=== PATIENT | female | born 1950 | race Caucasian/White ===

== ENCOUNTER 2020-07-28 08:49 | Outpatient (REF) | payer MEDICARE, MEDICAID, SELFPAY ==
[2020-07-28 10:09] LABS: MANUAL DIFF FLAG NO
[2020-07-28 10:22] LABS: Basophils Absolute Auto 0.1 X10*3/uL (0.0-0.2); Basophils Percent Auto 1.2 % (0-2); Eosinophils Absolute Auto 0.2 X10*3/uL (0.0-0.4); Eosinophils Percent Auto 1.8 % (0-4); Hematocrit 46.1 % (37-47); Hemoglobin 14.8 g/dl (12.0-16.0); Imm Gran Abs Auto 0.07 X10*3/uL (0.00-0.03); Imm Gran Pct Auto 0.7 % (0.0-0.4); Lymphocytes Absolute Auto 2.5 X10*3/uL (1.2-4.9); Lymphocytes Percent Auto 25.2 % (20-40); Mean Corpuscular HGB Conc 32.1 g/dl (31.0-35.0); Mean Corpuscular Hemoglobin 28.9 pg (27.0-33.0); Mean Platelet Volume 11.4 fL (9.4-12.3); Monocytes Absolute Auto 0.6 X10*3/uL (0.1-1.2); Monocytes Percent Auto 6.3 % (2-11); Neutrophils Absolute Auto 6.4 X10*3/uL (2.0-8.3); Neutrophils Percent Auto 64.8 % (45-73); Platelet Count 284 X10*3/uL (160-400); Red Blood Count 5.12 X10*6/uL (4.20-5.50); Red Cell Distribution Width 12.6 % (11.0-16.0); White Blood Count 9.9 X10*3/uL (4.8-10.8)
[2020-07-28 10:44] LABS: Alanine Aminotransferase 11 U/L (0-31); Albumin Level 4.1 g/dL (3.5-5.0); Alkaline Phosphatase 107 U/L (39-117); Anion Gap 14 (12-20); Aspartate Amino Transferase 13 U/L (5-31); Bilirubin Total 0.2 mg/dL (0.0-1.0); Blood Urea Nitrogen 18 mg/dL (9-16); Calcium 8.3 mg/dL (8.4-10.2); Carbon Dioxide 27 mmol/L (22-29); Chloride 103 mmol/L (96-108); Cholesterol 159 mg/dL; Estimated Glomerular Filt Rate 51; Glucose Fasting 207 mg/dL (60-99); HDL Cholesterol 38 mg/dL; LDL Cholesterol Calculated 96 mg/dl; Potassium 4.7 mmol/l (3.3-5.1); Sodium 139 mmol/L (135-145); Total Protein 6.7 g/dL (6.5-8.0); Triglycerides 127 mg/dL
[2020-07-28 10:59] LABS: Glucose Urine UA 100 MG/DL (NEG); Leukocyte Esterase Urine 1+ (NEG); Nitrite Urine NEG (NEG); Specific Gravity - Urine 1.025 (1.005-1.025); Urine Blood NEG (NEG); Urine Ketones NEG (NEG); Urine Protein NEG (NEG-TRACE)
[2020-07-28 11:07] LABS: Free T4 (Free Thyroxine) 1.11 ng/dL (0.71-1.85); Thyroid Stimulating Hormone 3.24 mIU/mL (0.32-4.0); Vitamin D 25-OH Total 20.1 ng/mL (>30)
[2020-07-28 11:08] LABS: Appearance Urine HAZY; Color Urine YELLOW
[2020-07-28 11:21] LABS: Creatinine Urine 219.25 mg/dL; Microalbum/Creatinine Ratio Ur 21.4 ug/mg cr
[2020-07-28 11:39] LABS: Bacteria Urine 2+ /LPF; Mucus Urine 2+ /LPF; Squamous Epithelial Cell Urine 2+ /LPF; Urine Talc Crystals 1+ /LPF
== END 2020-07-28 08:50 | disposition home or self-care (01) ==
LOC: HO.LAB 08:49
PROVIDERS: PCP Internal Medicine; Visit Provider Internal Medicine
DX: E78.5 Hyperlipidemia, unspecified (principal); E11.9 Type 2 diabetes mellitus without complications; I10 Essential (primary) hypertension; E03.9 Hypothyroidism, unspecified; E66.01 Morbid (severe) obesity due to excess calories; E55.9 Vitamin D deficiency, unspecified; M18.0 Bilateral primary osteoarthritis of first carpometacarpal joints
CPT/HCPCS: 36415; 80053; 80061; 81001; 82043; 82306; 84439; 84443; 85025; 87086

== ENCOUNTER 2021-01-06 09:25 | Outpatient (REF) | payer MEDICARE, MEDICAID, SELFPAY ==
--- NOTE | ~2021-01-06 | XR_ITS ---
EXAMINATION: XR FOREARM and wrist, RIGHT CLINICAL INFORMATION: Right wrist effusion. Anesthesia of skin. COMPARISON: Previous x-rays most recent June 2019 TECHNIQUE: 3 views of the right wrist and 2 views of the right forearm were obtained. FINDINGS: Right wrist: There is orthopedic hardware in the distal radius with ulnar plate and multiple screws. There is an old healed right distal radius fracture. There is an old healed right distal ulnar shaft fracture. There is ulnar minus variance at the wrist. 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 There is a mild arthritis at the first PRISON joint with small osteophytes. The bones appear osteopenic. Soft tissues are unremarkable. Right forearm: There is ORIF of old healed right distal radius fracture. There is an old healed fracture of the distal ulnar shaft. No other fracture is seen. There are degenerative changes at the radiocarpal joint. The elbow joint is normal. Soft tissues are normal. XR/XR hand wrist RT IMPRESSION: ORIF of old healed right distal radius fracture and old healed right distal ulnar shaft fracture. No acute fracture seen. Osteopenia, ulnar minus variance and degenerative change at the wrist.
--- NOTE | ~2021-01-06 | XR_ITS ---
EXAMINATION: XR FOREARM and wrist, RIGHT CLINICAL INFORMATION: Right wrist effusion. Anesthesia of skin. COMPARISON: Previous x-rays most recent June 2019 TECHNIQUE: 3 views of the right wrist and 2 views of the right forearm were obtained. FINDINGS: Right wrist: There is orthopedic hardware in the distal radius with ulnar plate and multiple screws. There is an old healed right distal radius fracture. There is an old healed right distal ulnar shaft fracture. There is ulnar minus variance at the wrist. 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 There is a mild arthritis at the first MCFP joint with small osteophytes. The bones appear osteopenic. Soft tissues are unremarkable. Right forearm: There is ORIF of old healed right distal radius fracture. There is an old healed fracture of the distal ulnar shaft. No other fracture is seen. There are degenerative changes at the radiocarpal joint. The elbow joint is normal. Soft tissues are normal. XR/XR forearm RT 2V IMPRESSION: ORIF of old healed right distal radius fracture and old healed right distal ulnar shaft fracture. No acute fracture seen. Osteopenia, ulnar minus variance and degenerative change at the wrist.
== END 2021-01-06 09:26 | disposition home or self-care (01) ==
LOC: HO.HMGCX 09:25
PROVIDERS: Visit Provider Nurse Practitioner Family
DX: Z13.89 Encounter for screening for other disorder (principal)
CPT/HCPCS: 73090; 73110; 73130

== ENCOUNTER 2021-01-06 14:17 | Emergency (ER) | payer MEDICARE, MEDICAID, SELFPAY ==
[2021-01-06 14:35] VITALS: BP 169/90; PULSE 90; RESP 16; TEMP 36.9; BMI 32.9
--- NOTE | 2021-01-06 15:13 | ECG_ITS ---
Test Reason : RT ARM NUMBNESS Blood Pressure : / mmHG Vent. Rate : 083 BPM Atrial Rate : 083 BPM P-R Int : 142 ms QRS Dur : 088 ms QT Int : 382 ms P-R-T Axes : 034 -48 020 degrees QTc Int : 448 ms Normal sinus rhythm Left anterior fascicular block Minimal voltage criteria for LVH, may be normal variant Abnormal ECG When compared with ECG of 08-DEC-2016 11:14, No significant change was found Referred By: Generic ED Physician Electronically Signed By:FELIPE CORTEZ
[2021-01-06 16:38] LABS: MANUAL DIFF FLAG NO
[2021-01-06 16:39] LABS: Basophils Absolute Auto 0.1 X10*3/uL (0.0-0.2); Basophils Percent Auto 0.8 % (0-2); Eosinophils Absolute Auto 0.1 X10*3/uL (0.0-0.4); Eosinophils Percent Auto 0.8 % (0-4); Hematocrit 43.5 % (37-47); Hemoglobin 14.5 g/dl (12.0-16.0); Imm Gran Abs Auto 0.06 X10*3/uL (0.00-0.03); Imm Gran Pct Auto 0.5 % (0.0-0.4); Lymphocytes Absolute Auto 2.4 X10*3/uL (1.2-4.9); Lymphocytes Percent Auto 19.2 % (20-40); Mean Corpuscular HGB Conc 33.3 g/dl (31.0-35.0); Mean Corpuscular Hemoglobin 29.4 pg (27.0-33.0); Mean Corpuscular Volume 88.2 fL (80-98); Monocytes Absolute Auto 0.7 X10*3/uL (0.1-1.2); Monocytes Percent Auto 5.5 % (2-11); Neutrophils Absolute Auto 9.1 X10*3/uL (2.0-8.3); Neutrophils Percent Auto 73.2 % (45-73); Platelet Count 297 X10*3/uL (160-400); Red Blood Count 4.93 X10*6/uL (4.20-5.50); Red Cell Distribution Width 12.5 % (11.0-16.0); White Blood Count 12.5 X10*3/uL (4.8-10.8)
[2021-01-06 16:59] LABS: Anion Gap 14 (12-20); Blood Urea Nitrogen 19 mg/dL (9-16); Calcium 9.2 mg/dL (8.4-10.2); Carbon Dioxide 26 mmol/L (22-29); Chloride 104 mmol/L (96-108); Creatinine Clr Calc Pharmacy 47.6; Estimated Glomerular Filt Rate 56; Glucose Random 144 mg/dL (60-115); Potassium 4.4 mmol/L (3.3-5.1); Sodium 140 mmol/L (135-145)
[2021-01-06 17:06] LABS: Troponin-I High Sensitivity < 3.5 ng/L (<3.5-17.0)
== END 2021-01-06 20:02 | disposition left against medical advice (07) ==
PROVIDERS: Emergency Provider Emergency Medicine; PCP Internal Medicine
DX: R20.0 Anesthesia of skin (principal); E11.9 Type 2 diabetes mellitus without complications
CPT/HCPCS: 36415; 73090; 73110; 73130; 80048; 84484; 85025; 93005; 99282; 99283

== ENCOUNTER 2022-05-11 17:58 | Emergency (ER) | payer MEDICARE, MEDICAID, SELFPAY ==
[2022-05-11 19:09] VITALS: BP 148/92; PULSE 81; RESP 18; TEMP 35.6; O2SAT 96; BMI 33.9
[2022-05-11 19:24] LABS: MANUAL DIFF FLAG NO
[2022-05-11 19:28] LABS: Basophils Absolute Auto 0.1 X10*3/uL (0.0-0.2); Eosinophils Absolute Auto 0.1 X10*3/uL (0.0-0.4); Hematocrit 44.5 % (37.0-47.0); Hemoglobin 14.8 g/dl (12.0-16.0); Imm Gran Abs Auto 0.07 X10*3/uL (0.00-0.03); Imm Gran Pct Auto 0.6 % (0.0-0.4); Lymphocytes Percent Auto 24.8 % (20-40); Mean Corpuscular HGB Conc 33.3 g/dl (31.0-35.0); Mean Corpuscular Hemoglobin 29.4 pg (27.0-33.0); Mean Corpuscular Volume 88.5 fL (80.0-98.0); Mean Platelet Volume 11.3 fL (9.4-12.3); Monocytes Absolute Auto 0.8 X10*3/uL (0.1-1.2); Monocytes Percent Auto 6.8 % (2-11); Neutrophils Absolute Auto 7.9 x10*3/uL (2.0-8.3); Neutrophils Percent Auto 65.8 % (45-73); Platelet Count 288 X10*3/uL (160-400); Red Blood Count 5.03 X10*6/uL (4.20-5.50); Red Cell Distribution Width 12.7 % (11.0-16.0)
[2022-05-11 19:41] LABS: Alanine Aminotransferase 10 U/L (0-31); Albumin Level 4.2 g/dL (3.5-5.0); Alkaline Phosphatase 101 U/L (39-117); Anion Gap 15 (12-20); Aspartate Amino Transferase 12 U/L (5-31); Bilirubin Total 0.4 mg/dL (0.0-1.0); Blood Urea Nitrogen 13 mg/dL (9-16); Carbon Dioxide 24 mmol/L (22-29); Chloride 106 mmol/L (96-108); Creatinine Clr Calc Pharmacy 40.9; Estimated Glomerular Filt Rate 47; Glucose Random 191 mg/dL (60-115); Potassium 4.3 mmol/L (3.3-5.1); Sodium 141 mmol/L (135-145); Total Protein 6.8 g/dL (6.5-8.0)
[2022-05-11 20:39] VITALS: BP 132/71; PULSE 75; RESP 16; O2SAT 97
--- NOTE | 2022-05-11 20:44 | ED.DIZZY ---
HPI - Dizziness General Chief Complaint: Dizziness Stated Complaint: dizziness Time Seen by Provider: 05/11/22 20:44 Source: patient Mode of arrival: ambulatory Limitations: no limitations History of Present Illness HPI Narrative: Patient diabetic been feeling dizzy for last 2 days specially when stands up picture of spinning movement and lightheaded no headache no fever or chills had similar episode few years ago no tinnitus no focal weakness no vision problems dizziness gets worse patient on standing at this time patient denies any dizziness Related Data Home Medications Medication Instructions Recorded Confirmed omeprazole 20 mg capsule,delayed mg PO 01/06/21 release simvastatin 20 mg tablet mg PO 01/06/21 Previous Rx's Medication Instructions Recorded cholecalciferol (vitamin D3) 50 50 mcg PO DAILY #30 caps 07/10/20 mcg (2,000 unit) capsule (Vitamin D3) dulaglutide 0.75 mg/0.5 mL 0.75 mg (0.5 mL) subcut QWEEK #6 mL 09/21/20 subcutaneous pen injector ([email or web address]) insulin syringe-needle U-100 0.5 See Rx Instructions .Route DAILY 11/19/20 mL 31 gauge x 5/16 (BD Insulin insulin dependent diabetic #30 ea Syringe Ultra-Fine) naproxen 500 mg tablet 500 mg PO BID PRN pain #30 tabs 01/06/21 glipizide 5 mg tablet 5 mg PO DAILY #90 tabs 01/15/21 lisinopril 2.5 mg tablet 2.5 mg PO DAILY #90 tabs 01/28/21 insulin glargine 100 unit/mL 20 unit (0.2 mL) subcut BEDTIME 03/06/21 subcutaneous solution (Lantus #30 mL U-100 Insulin) cefuroxime axetil 500 mg tablet 500 mg PO BID 7 days #14 tabs 05/11/22 meclizine 12.5 mg tablet 12.5 mg PO TID PRN dizziness #20 05/11/22 tabs Allergies Allergy/AdvReac Type Severity Reaction Status Date / Time pioglitazone [From ACTOS] Allergy Unknown SWELLING , Verified 07/31/20 06:24 diarrhea, feet swell metformin AdvReac Unknown swelling Verified 07/31/20 06:24 in feet, diarrhea, diarrhea Review of Systems Review of Systems: Yes all other systems are reviewed and are negative PMFSH Past Medical History Medical History Diabetes mellitus Surgical History History of cataract surgery History of eye surgery History of laparoscopic cholecystectomy History of open reduction and internal fixation (ORIF) procedure Family History Family History Father Emphysema lung Mother Diabetes Sister Diabetes Son Diabetes Social History Social History Alcohol intake: never Patient Tobacco Use Status: Never used Tobacco Use of substances other than those prescribed or required for medical reasons: No Advance Directives: No Physical Exam Vital Signs: Vital Signs: Last Vital Signs Temp 96.1 F L 05/11/22 19:09 Pulse 80 05/11/22 22:16 Resp 16 05/11/22 20:39 BP 146/82 H 05/11/22 22:16 Pulse Ox 97 05/11/22 20:39 O2 Del Method 05/11/22 20:39 BMI result Body Mass Index 33.9 Appearance: Alert. Oriented X3. No acute distress. Eyes: PERRLA, No Nystagmus normal vision ENT: Pharynx normal. Oral Mucosa moist Neck: Normal inspection. Neck supple. no carotid bruit CVS: Normal heart rate and rhythm. Pulses normal. Respiratory: No respiratory distress. Equal air entry bilateral, no wheezing/rales/rhonchi Abdomen: Soft and nontender. Bowel sounds are present, no mass palpable, no CVA tenderness Skin: Skin warm and dry. Normal skin color. Normal skin turgor. Extremities: No lower extremity edema. No calf tenderness Neuro: Oriented X 3. No motor deficit. No sensory deficit.No cerebellar signs , cranial nerves II-XII intact speech normal steady gait no tacks MDM - Dizziness MDM Narrative Medical decision making narrative: Patient nonspecific dizziness normal salts aesthetics workup showed UTI patient ambulating steady gait off and on feeling dizzy. Will discharge patient home on meclizine and Ceftin Differential Diagnosis Differential diagnosis: Likely benign paroxysmal positional vertigo and orthostatic hypotension Lab Data Attestation: I reviewed the patient's lab results. Result diagrams: 05/11/22 19:16 05/11/22 19:16 Labs: Lab Results 05/11/22 05/11/22 05/11/22 Range/Units 19:16 19:16 20:49 WBC 12.0 H (4.8-10.8) X10*3/uL RBC 5.03 (4.20-5.50) X10*6/uL Hgb 14.8 (12.0-16.0) g/dl Hct 44.5 (37.0-47.0) % MCV 88.5 (80.0-98.0) fL MCH 29.4 (27.0-33.0) pg MCHC 33.3 (31.0-35.0) g/dl RDW 12.7 (11.0-16.0) % Plt Count 288 (160-400) X10*3/uL MPV 11.3 (9.4-12.3) fL Immature Gran % (Auto) 0.6 H (0.0-0.4) % Neut % (Auto) 65.8 (45-73) % Lymph % (Auto) 24.8 (20-40) % [place] % (Auto) 6.8 (2-11) % Eos % (Auto) 1.0 (0-4) % Baso % (Auto) 1.0 (0-2) % Lymph # (Auto) 3.0 (1.2-4.9) X10*3/uL [place] # (Auto) 0.8 (0.1-1.2) X10*3/uL Eos # (Auto) 0.1 (0.0-0.4) X10*3/uL Baso # (Auto) 0.1 (0.0-0.2) X10*3/uL Abs Immat Gran (auto) 0.07 H (0.00-0.03) X10*3/uL Absolute Neuts (auto) 7.9 (2.0-8.3) x10*3/uL Absolute Nucleated RBC 0.000 (0.0-0.012) X10*3/uL Nucleated RBC % (auto) 0.0 (0.0-0.2) /100WBC Sodium 141 (135-145) mmol/L Potassium 4.3 (3.3-5.1) mmol/L Chloride 106 (96-108) mmol/L Carbon Dioxide 24 (22-29) mmol/L Anion Gap 15 (12-20) BUN 13 (9-16) mg/dL Creatinine 1.14 (0.5-1.4) mg/dL Estim Creat Clear Calc 40.9 Estimated GFR 47 Random Glucose 191 H (60-115) mg/dL Calcium 9.0 (8.4-10.2) mg/dL Total Bilirubin 0.4 (0.0-1.0) mg/dL AST 12 (5-31) U/L ALT 10 (0-31) U/L Alkaline Phosphatase 101 (39-117) U/L Total Protein 6.8 (6.5-8.0) g/dL Albumin 4.2 (3.5-5.0) g/dL Urine Color Urine Appearance Urine pH (5.0-8.0) Ur Specific [place] (1.005-1.025) Urine Protein (Neg-Trace) mg/dL Urine Glucose (UA) (Negative) mg/dL Urine Ketones (Negative) mg/dL Urine Blood (Negative) Urine Nitrite (Negative) Ur Leukocyte Esterase (Negative) Urine RBC (0-2) /HPF Urine WBC (0-5) /HPF Ur Squamous Epith Cells (0-2) /HPF Urine Bacteria (None Seen) Hyaline Casts (0-2) /LPF COVID-19 (SEAN) Negative (Negative) COVID-19 Clin Com See Note 05/11/22 Range/Units 21:50 WBC (4.8-10.8) X10*3/uL RBC (4.20-5.50) X10*6/uL Hgb (12.0-16.0) g/dl Hct (37.0-47.0) % MCV (80.0-98.0) fL MCH (27.0-33.0) pg MCHC (31.0-35.0) g/dl RDW (11.0-16.0) % Plt Count (160-400) X10*3/uL MPV (9.4-12.3) fL Immature Gran % (Auto) (0.0-0.4) % Neut % (Auto) (45-73) % Lymph % (Auto) (20-40) % [place] % (Auto) (2-11) % Eos % (Auto) (0-4) % Baso % (Auto) (0-2) % Lymph # (Auto) (1.2-4.9) X10*3/uL [place] # (Auto) (0.1-1.2) X10*3/uL Eos # (Auto) (0.0-0.4) X10*3/uL Baso # (Auto) (0.0-0.2) X10*3/uL Abs Immat Gran (auto) (0.00-0.03) X10*3/uL Absolute Neuts (auto) (2.0-8.3) x10*3/uL Absolute Nucleated RBC (0.0-0.012) X10*3/uL Nucleated RBC % (auto) (0.0-0.2) /100WBC Sodium (135-145) mmol/L Potassium (3.3-5.1) mmol/L Chloride (96-108) mmol/L Carbon Dioxide (22-29) mmol/L Anion Gap (12-20) BUN (9-16) mg/dL Creatinine (0.5-1.4) mg/dL Estim Creat Clear Calc Estimated GFR Random Glucose (60-115) mg/dL Calcium (8.4-10.2) mg/dL Total Bilirubin (0.0-1.0) mg/dL AST (5-31) U/L ALT (0-31) U/L Alkaline Phosphatase (39-117) U/L Total Protein (6.5-8.0) g/dL Albumin (3.5-5.0) g/dL Urine Color Yellow Urine Appearance Hazy Urine pH 5.5 (5.0-8.0) Ur Specific [place] 1.025 (1.005-1.025) Urine Protein Negative (Neg-Trace) mg/dL Urine Glucose (UA) Negative (Negative) mg/dL Urine Ketones Negative (Negative) mg/dL Urine Blood Negative (Negative) Urine Nitrite Negative (Negative) Ur Leukocyte Esterase Moderate (2+) H (Negative) Urine RBC 3-5 H (0-2) /HPF Urine WBC 11-20 H (0-5) /HPF Ur Squamous Epith Cells 6-10 (0-2) /HPF Urine Bacteria 2+ (None Seen) Hyaline Casts 0-2 (0-2) /LPF COVID-19 (SEAN) (Negative) COVID-19 Clin Com Discharge Plan Discharge Clinical Impression: Benign paroxysmal positional vertigo, Acute UTI (urinary tract infection) Patient Disposition: Home, Self-Care Instructions: Urinary Tract Infection in Women (ED), Benign Paroxysmal Positional Vertigo (ED) Additional Instructions: Drink plenty of fluids Meclizine for dizziness as prescribed Antibiotic as prescribed for urinary tract infection Follow with PCP if not better Prescriptions: New meclizine 12.5 mg tablet 12.5 mg PO TID PRN (Reason: dizziness) Qty: 20 0RF cefuroxime axetil 500 mg tablet 500 mg PO BID 7 Days Qty: 14 0RF No Action cholecalciferol (vitamin D3) [Vitamin D3] 50 mcg (2,000 unit) capsule 50 mcg PO DAILY Qty: 30 11RF dulaglutide [Trulicity] 0.75 mg/0.5 mL pen injector 0.75 mg subcut QWEEK Qty: 6 5RF insulin syringe-needle U-100 [BD Insulin Syringe Ultra-Fine] 0.5 mL 31 gauge x 5/16 syringe See Rx Instructions .ROUTE DAILY Qty: 30 6RF Rx Instructions: 1 syringe daily; naproxen 500 mg tablet 500 mg PO BID PRN (Reason: pain) Qty: 30 0RF glipizide 5 mg tablet 5 mg PO DAILY Qty: 90 0RF lisinopril 2.5 mg tablet 2.5 mg PO DAILY Qty: 90 0RF Lantus U-100 Insulin 100 unit/mL solution 20 unit subcut BEDTIME Qty: 30 1RF simvastatin 20 mg tablet PO omeprazole 20 mg capsule,delayed release(DR/EC) PO
[2022-05-11 21:34] LABS: IDNOW Serial# 16C4AD1C
[2022-05-11 21:35] LABS: COVID-19 Test Negative (Negative)
[2022-05-11 21:58] LABS: Appearance Urine Hazy; Color Urine Yellow; Glucose Urine UA Negative (Negative); Leukocyte Esterase Urine Moderate (2+) (Negative); Nitrite Urine Negative (Negative); PH 5.5 (5.0-8.0); Specific Gravity - Urine 1.025 (1.005-1.025); Urine Blood Negative (Negative); Urine Ketones Negative (Negative); Urine Protein Negative (Neg-Trace)
[2022-05-11 21:59] LABS: UACC Culture Trigger YES
[2022-05-11 22:04] LABS: Bacteria Urine 2+ (None Seen)
[2022-05-11 22:07] LABS: Hyaline Casts Urine 0-2 /LPF (0-2)
[2022-05-11 22:13] VITALS: BP 149/83; BP 169/74; PULSE 75; PULSE 78
[2022-05-11 22:16] VITALS: BP 146/82; PULSE 80
== END 2022-05-11 22:57 | disposition home or self-care (01) ==
PROVIDERS: Emergency Provider Internal Medicine
DX: H81.13 Benign paroxysmal vertigo, bilateral (principal); N39.0 Urinary tract infection, site not specified; Z20.822 Contact with and (suspected) exposure to COVID-19; Z79.899 Other long term (current) drug therapy
CPT/HCPCS: 36415; 80053; 81001; 85025; 87086; 87635; 99283; 99284

== ENCOUNTER 2022-05-26 10:08 | Emergency (ER) | payer MEDICARE, MEDICAID, SELFPAY ==
--- NOTE | ~2022-05-26 | CT_ITS ---
EXAMINATION: CT HEAD WITHOUT CONTRAST CLINICAL INFORMATION: Dizziness COMPARISON: None TECHNIQUE: Contiguous axial imaging was performed from the skull base to vertex without intravenous administration of contrast. This CT examination was performed using dose optimization techniques as appropriate, variously including the following: *Automated exposure control *Adjustment of mA and/or kV according to patient size (this includes techniques or standardized protocols for targeted exams where dose is matched to indication/reason for exam; i.e. extremities or head) *Use of iterative reconstruction technique DLP: 617 mGy-cm FINDINGS: Sulci and ventricles normal. No intra or extra-axial fluid collection or hemorrhage, mass or mass effect. Calvarium intact. CT/CT head/brain wo IV con IMPRESSION: No acute intracranial pathology.
--- NOTE | 2022-05-26 10:14 | ED.DIZZY ---
HPI - Dizziness General Chief Complaint: Headache Stated Complaint: FALL/HEADACHE Time Seen by Provider: 05/26/22 10:14 Source: patient Mode of arrival: EMS Limitations: no limitations History of Present Illness HPI Narrative: patient with dizziness and blurry vision for a few weeks. Patient feels lightheaded and has some blurry vision. patient is a diabetic states that her sugars have not been running high. MD elicited complaint: lightheadedness Onset (ago): week(s) Timing: gradual onset Severity: mild History of similar symptoms: Yes Exacerbating factors: nothing Associated symptoms: denies other symptoms Associated neuro symptoms: vision changes Related Data Home Medications Medication Instructions Recorded Confirmed omeprazole 20 mg capsule,delayed mg PO 01/06/21 release simvastatin 20 mg tablet mg PO 01/06/21 Previous Rx's Medication Instructions Recorded cholecalciferol (vitamin D3) 50 50 mcg PO DAILY #30 caps 07/10/20 mcg (2,000 unit) capsule (Vitamin D3) dulaglutide 0.75 mg/0.5 mL 0.75 mg (0.5 mL) subcut QWEEK #6 mL 09/21/20 subcutaneous pen injector ([employer]) insulin syringe-needle U-100 0.5 See Rx Instructions .Route DAILY 11/19/20 mL 31 gauge x 5/16 (BD Insulin insulin dependent diabetic #30 ea Syringe Ultra-Fine) naproxen 500 mg tablet 500 mg PO BID PRN pain #30 tabs 01/06/21 glipizide 5 mg tablet 5 mg PO DAILY #90 tabs 01/15/21 lisinopril 2.5 mg tablet 2.5 mg PO DAILY #90 tabs 01/28/21 insulin glargine 100 unit/mL 20 unit (0.2 mL) subcut BEDTIME 03/06/21 subcutaneous solution (Lantus #30 mL U-100 Insulin) cefuroxime axetil 500 mg tablet 500 mg PO BID 7 days #14 tabs 05/11/22 meclizine 12.5 mg tablet 12.5 mg PO TID PRN dizziness #20 05/11/22 tabs Allergies Allergy/AdvReac Type Severity Reaction Status Date / Time pioglitazone [From ACTOS] Allergy Unknown SWELLING , Verified 07/31/20 06:24 diarrhea, feet swell metformin AdvReac Unknown swelling Verified 07/31/20 06:24 in feet, diarrhea, diarrhea Review of Systems Constitutional: Constitutional: Reports no additional constitutional complaints Eyes: Eyes: Reports no additional eye complaints ENT: Denies dizziness Cardiovascular: Cardiovascular: Reports no additional cardiovascular complaints Respiratory: Respiratory: Reports as per HPI Gastrointestinal: Gastrointestinal: Reports no additional gastrointestinal complaints Genitourinary: Genitourinary: Reports no additional female genitourinary complaints Musculoskeletal: Musculoskeletal: Reports no additional musculoskeletal complaints Integumentary/Breasts: Skin/Breast: Denies rash Neurologic: Reports system reviewed and no additional complaints, except as documented, Denies dizziness and Denies Sensory deficit (Neuro) Psychiatric: Psychiatric: Denies anxiety [facility] Past Medical History Medical History Diabetes mellitus Surgical History History of cataract surgery History of eye surgery History of laparoscopic cholecystectomy History of open reduction and internal fixation (ORIF) procedure Family History Family History Father Emphysema lung Mother Diabetes Sister Diabetes Son Diabetes Social History Social History Alcohol intake: never Patient Tobacco Use Status: Former Tobacco user Advance Directives: No Advance Directives Information Provided: No Physical Exam Vital Signs: Vital Signs: Last Vital Signs Temp 98.1 F 05/26/22 12:22 Pulse 74 05/26/22 12:22 Resp 16 05/26/22 12:22 BP 141/40 H 05/26/22 12:22 Pulse Ox 95 05/26/22 12:22 O2 Del Method 05/26/22 12:22 BMI result Body Mass Index 32.8 Const: General: healthy appearing Nutritional Appearance: average body habitus Orientation/consciousness: oriented to person and patient oriented x3 Limitations: no limitations HEENT: Head: Yes normal to inspection Ears: external ears normal General nose exam: Normal external nose present Mouth: Normal oral and palatal mucosa present and oropharynx normal Throat: Yes posterior oropharynx normal Eyes: General: appearance normal, both eyes and all related structures Neck: Other: supple Neck: Yes normal visual inspection Chest: Chest palpation & inspection: normal inspection of the chest Resp: Auscultation: clear to auscultation bilaterally Cardio: Jugular venous distension: no JVD Rate: regular rate Rhythm: regular rhythm Heart sounds: S1 normal heart sound present and S2 normal heart sound present GI: Inspection: Yes normal to inspection Palpation (GI): Soft to palpation, nontender and No hepatosplenomegaly present Auscultation: normal bowel sounds : General: Yes no CVA tenderness Back/Spine/Pelvis: Back: no CVA tenderness Skin: General skin exam: no rashes or lesions noted Neuro: General: oriented to person and patient oriented x3 Cranial nerves: Yes CN's II-XII intact bilaterally Motor exam (neuro): 5/5 motor strength present throughout Sensory Exam: No Sensory deficit (Neuro) Extrem: General: Yes normal to inspection Psych: Appearance: grossly normal Course Reevaluation(s) Reevaluation #1: labs, UA and head CT all normal. Dizziness and blurry vision likely secondary to hyperglycemia will dc home Time: 14:03 [facility] - Dizziness Lab Data Result diagrams: 05/26/22 10:41 05/26/22 10:41 Labs: Lab Results 05/26/22 05/26/22 05/26/22 Range/Units 10:41 10:41 12:51 WBC 10.3 (4.8-10.8) X10*3/uL RBC 4.86 (4.20-5.50) X10*6/uL Hgb 14.1 (12.0-16.0) g/dl Hct 42.6 (37.0-47.0) % MCV 87.7 (80.0-98.0) fL MCH 29.0 (27.0-33.0) pg MCHC 33.1 (31.0-35.0) g/dl RDW 12.4 (11.0-16.0) % Plt Count 246 (160-400) X10*3/uL MPV 11.0 (9.4-12.3) fL Immature Gran % (Auto) 0.6 H (0.0-0.4) % Neut % (Auto) 71.2 (45-73) % Lymph % (Auto) 19.3 L (20-40) % [place] % (Auto) 6.3 (2-11) % Eos % (Auto) 1.6 (0-4) % Baso % (Auto) 1.0 (0-2) % Lymph # (Auto) 2.0 (1.2-4.9) X10*3/uL [place] # (Auto) 0.7 (0.1-1.2) X10*3/uL Eos # (Auto) 0.2 (0.0-0.4) X10*3/uL Baso # (Auto) 0.1 (0.0-0.2) X10*3/uL Abs Immat Gran (auto) 0.06 H (0.00-0.03) X10*3/uL Absolute Neuts (auto) 7.4 (2.0-8.3) x10*3/uL Absolute Nucleated RBC 0.000 (0.0-0.012) X10*3/uL Nucleated RBC % (auto) 0.0 (0.0-0.2) /100WBC Sodium 141 (135-145) mmol/L Potassium 4.3 (3.3-5.1) mmol/L Chloride 106 (96-108) mmol/L Carbon Dioxide 24 (22-29) mmol/L Anion Gap 15 (12-20) BUN 15 (9-16) mg/dL Creatinine 1.00 (0.5-1.4) mg/dL Estim Creat Clear Calc 47.7 Estimated GFR 55 POC Glucose 146 H (60-115) mg/dL Random Glucose 194 H (60-115) mg/dL Calcium 8.9 (8.4-10.2) mg/dL Urine Color Urine Appearance Urine pH (5.0-9.0) Ur Specific [place] (1.005-1.025) Urine Protein (Neg-Trace) mg/dL Urine Glucose (UA) (Negative) mg/dL Urine Ketones (Negative) mg/dL Urine Blood (Negative) Urine Nitrite (Negative) Ur Leukocyte Esterase (Negative) Urine RBC (0-2) /HPF Urine WBC (0-5) /HPF Ur Squamous Epith Cells (0-2) /HPF Urine Bacteria (None Seen) Hyaline Casts (0-2) /LPF 05/26/22 Range/Units 13:23 WBC (4.8-10.8) X10*3/uL RBC (4.20-5.50) X10*6/uL Hgb (12.0-16.0) g/dl Hct (37.0-47.0) % MCV (80.0-98.0) fL MCH (27.0-33.0) pg MCHC (31.0-35.0) g/dl RDW (11.0-16.0) % Plt Count (160-400) X10*3/uL MPV (9.4-12.3) fL Immature Gran % (Auto) (0.0-0.4) % Neut % (Auto) (45-73) % Lymph % (Auto) (20-40) % [place] % (Auto) (2-11) % Eos % (Auto) (0-4) % Baso % (Auto) (0-2) % Lymph # (Auto) (1.2-4.9) X10*3/uL [place] # (Auto) (0.1-1.2) X10*3/uL Eos # (Auto) (0.0-0.4) X10*3/uL Baso # (Auto) (0.0-0.2) X10*3/uL Abs Immat Gran (auto) (0.00-0.03) X10*3/uL Absolute Neuts (auto) (2.0-8.3) x10*3/uL Absolute Nucleated RBC (0.0-0.012) X10*3/uL Nucleated RBC % (auto) (0.0-0.2) /100WBC Sodium (135-145) mmol/L Potassium (3.3-5.1) mmol/L Chloride (96-108) mmol/L Carbon Dioxide (22-29) mmol/L Anion Gap (12-20) BUN (9-16) mg/dL Creatinine (0.5-1.4) mg/dL Estim Creat Clear Calc Estimated GFR POC Glucose (60-115) mg/dL Random Glucose (60-115) mg/dL Calcium (8.4-10.2) mg/dL Urine Color Yellow Urine Appearance Clear Urine pH 5.5 (5.0-9.0) Ur Specific [place] 1.015 (1.005-1.025) Urine Protein Negative (Neg-Trace) mg/dL Urine Glucose (UA) Negative (Negative) mg/dL Urine Ketones Negative (Negative) mg/dL Urine Blood Negative (Negative) Urine Nitrite Negative (Negative) Ur Leukocyte Esterase Small (1+) H (Negative) Urine RBC 0-2 (0-2) /HPF Urine WBC 0-5 (0-5) /HPF Ur Squamous Epith Cells 3-5 (0-2) /HPF Urine Bacteria Trace (None Seen) Hyaline Casts 0-2 (0-2) /LPF Imaging Data CT scan - head: Radiologist's impression: IMPRESSION: No acute intracranial pathology. Discharge Plan Discharge Clinical Impression: Diabetes mellitus, Hyperglycemia Patient Disposition: Home, Self-Care Instructions: Diabetic Hyperglycemia (ED) Prescriptions: No Action cholecalciferol (vitamin D3) [Vitamin D3] 50 mcg (2,000 unit) capsule 50 mcg PO DAILY Qty: 30 11RF dulaglutide [Trulicity] 0.75 mg/0.5 mL pen injector 0.75 mg subcut QWEEK Qty: 6 5RF insulin syringe-needle U-100 [BD Insulin Syringe Ultra-Fine] 0.5 mL 31 gauge x 5/16 syringe See Rx Instructions .ROUTE DAILY Qty: 30 6RF Rx Instructions: 1 syringe daily; naproxen 500 mg tablet 500 mg PO BID PRN (Reason: pain) Qty: 30 0RF glipizide 5 mg tablet 5 mg PO DAILY Qty: 90 0RF lisinopril 2.5 mg tablet 2.5 mg PO DAILY Qty: 90 0RF Lantus U-100 Insulin 100 unit/mL solution 20 unit subcut BEDTIME Qty: 30 1RF meclizine 12.5 mg tablet 12.5 mg PO TID PRN (Reason: dizziness) Qty: 20 0RF cefuroxime axetil 500 mg tablet 500 mg PO BID 7 Days Qty: 14 0RF simvastatin 20 mg tablet PO omeprazole 20 mg capsule,delayed release(DR/EC) PO Referrals: Physician,Unknown J [Primary Care Provider] - 1 week
[2022-05-26 10:17] VITALS: BP 155/84; PULSE 83; RESP 16; TEMP 36.8; O2SAT 95
[2022-05-26 10:27] VITALS: BP 166/84; PULSE 82; O2SAT 96; BMI 32.8
[2022-05-26 10:46] LABS: MANUAL DIFF FLAG NO
[2022-05-26 10:47] LABS: Basophils Absolute Auto 0.1 X10*3/uL (0.0-0.2); Eosinophils Absolute Auto 0.2 X10*3/uL (0.0-0.4); Eosinophils Percent Auto 1.6 % (0-4); Hematocrit 42.6 % (37.0-47.0); Hemoglobin 14.1 g/dl (12.0-16.0); Imm Gran Abs Auto 0.06 X10*3/uL (0.00-0.03); Imm Gran Pct Auto 0.6 % (0.0-0.4); Lymphocytes Percent Auto 19.3 % (20-40); Mean Corpuscular HGB Conc 33.1 g/dl (31.0-35.0); Mean Corpuscular Volume 87.7 fL (80.0-98.0); Monocytes Absolute Auto 0.7 X10*3/uL (0.1-1.2); Monocytes Percent Auto 6.3 % (2-11); Neutrophils Absolute Auto 7.4 x10*3/uL (2.0-8.3); Neutrophils Percent Auto 71.2 % (45-73); Platelet Count 246 X10*3/uL (160-400); Red Blood Count 4.86 X10*6/uL (4.20-5.50); Red Cell Distribution Width 12.4 % (11.0-16.0); White Blood Count 10.3 X10*3/uL (4.8-10.8)
[2022-05-26 11:03] LABS: Anion Gap 15 (12-20); Blood Urea Nitrogen 15 mg/dL (9-16); Calcium 8.9 mg/dL (8.4-10.2); Carbon Dioxide 24 mmol/L (22-29); Chloride 106 mmol/L (96-108); Creatinine Clr Calc Pharmacy 47.7; Estimated Glomerular Filt Rate 55; Glucose Random 194 mg/dL (60-115); Potassium 4.3 mmol/L (3.3-5.1); Sodium 141 mmol/L (135-145)
[2022-05-26 12:22] VITALS: BP 141/40; PULSE 74; RESP 16; TEMP 36.7; O2SAT 95
--- NOTE | 2022-05-26 12:30 | PC.NURSE ---
Pt is alert and oriented X 3, speaking in full sentences. Reported dizziness with ambulation and no headache. Awaiting urine sample.
[2022-05-26 13:28] LABS: Glucose, Whole Blood 146 mg/dL (60-115)
[2022-05-26 13:29] LABS: Appearance Urine Clear; Color Urine Yellow; Glucose Urine UA Negative (Negative); Leukocyte Esterase Urine Small (1+) (Negative); Nitrite Urine Negative (Negative); PH 5.5 (5.0-9.0); Specific Gravity - Urine 1.015 (1.005-1.025); Urine Blood Negative (Negative); Urine Ketones Negative (Negative); Urine Protein Negative (Neg-Trace)
--- NOTE | 2022-05-26 13:34 | PC.NURSE ---
PT AMBULATED TO RESTROOM STEADILY AND INDEPENDENTLY WITH NO ISSUE.
[2022-05-26 13:52] LABS: Bacteria Urine Trace (None Seen); Hyaline Casts Urine 0-2 /LPF (0-2); RBC Urine 0-2 /HPF (0-2); UACC Culture Trigger YES; WBC Urine 0-5 /HPF (0-5)
[2022-05-26 14:22] VITALS: BP 139/86; PULSE 79; RESP 16; TEMP 36.5; O2SAT 95
== END 2022-05-26 14:34 | disposition home or self-care (01) ==
PROVIDERS: Emergency Provider Emergency Medicine
DX: R42 Dizziness and giddiness (principal); E11.65 Type 2 diabetes mellitus with hyperglycemia; R51.9 Headache, unspecified; Z79.4 Long term (current) use of insulin; Z79.899 Other long term (current) drug therapy; Z87.891 Personal history of nicotine dependence
CPT/HCPCS: 36415; 70450; 80048; 81001; 82947; 85025; 87086; 99284

== ENCOUNTER 2023-09-14 13:50 | Emergency (ER) | payer MEDICARE, MEDICAID, SELFPAY ==
--- NOTE | ~2023-09-14 | XR_ITS ---
EXAMINATION: 1. Left foot. 2. Left ankle. CLINICAL INFORMATION: Trauma. Pain. COMPARISON: None. TECHNIQUE: 1. Left foot. 3 views 2. Left ankle. 3 views FINDINGS: 1. Left foot. Comminuted moderately displaced slightly angulated fracture involving the mid distal diaphyseal shaft of the fourth metatarsal. There is osteopenia. There is no dislocation. 2. Left ankle. There is no fracture. No dislocation. Ankle mortise is congruent. XR/XR ankle LT 2V IMPRESSION: 1. Left foot. Comminuted fracture of the fourth metatarsal. 2. Left ankle. No acute abnormality of the ankle.
--- NOTE | ~2023-09-14 | CT_ITS ---
EXAMINATION: CT HEAD WITHOUT CONTRAST CLINICAL INFORMATION: Fall COMPARISON: CT head from 05/26/2022 TECHNIQUE: Contiguous axial imaging was performed from the skull base to vertex without intravenous administration of contrast. This CT examination was performed using dose optimization techniques as appropriate, variously including the following: *Automated exposure control *Adjustment of mA and/or kV according to patient size (this includes techniques or standardized protocols for targeted exams where dose is matched to indication/reason for exam; i.e. extremities or head) *Use of iterative reconstruction technique DLP: 877 mGy-cm FINDINGS: There is no evidence of acute intracranial hemorrhage or territorial infarction. Chronic white matter small vessel ischemic changes. No abnormal mass effect or midline shift is seen. [place] to white matter differentiation is well preserved. No extra-axial fluid collections are identified. The ventricles are normal in size. There is no abnormal attenuation within the brain parenchyma. Hyperostosis frontalis interna. The osseous structures and soft tissues are normal. Small amount of fluid right mastoid air cells. Mucoperiosteal thickening of the right sphenoid and frontal sinuses. The mastoid air cells and visualized portions of the paranasal sinuses are well aerated. CT/CT cervical spine wo IV con IMPRESSION: 1. No acute intracranial pathology. 2. Chronic white matter small vessel ischemic changes. 3. Small amount of fluid right mastoid air cells. Mucoperiosteal thickening of the right sphenoid and frontal sinuses. EXAMINATION: Noncontrast CT scan of the cervical spine. INDICATION: Fall COMPARISON: None. TECHNIQUE: Helical, multidetector axial images were obtained from the occiput to the upper thorax. Coronal and sagittal reformats of the cervical spine were provided for interpretation. DLP: 877 mGy-cm FINDINGS: No acute fractures or dislocations of the cervical spine are seen. Straightening of normal cervical curvature which may be secondary to patient positioning versus muscle spasm. Grade 1 anterolisthesis of C4 on C5 and C5-6. Multilevel degenerative changes. Anatomic alignment and positioning of the vertebral bodies and posterior elements is noted. The atlantoaxial joint and craniovertebral articulations are normal without evidence of subluxation. There is no prevertebral soft tissue swelling. The thyroid gland and visualized portions of the lung apices and mediastinum are unremarkable. IMPRESSION: 1. No acute visible fracture or dislocation. 2. Straightening of normal cervical curvature which may be secondary to patient positioning versus muscle spasm. 3. Grade 1 anterolisthesis of C4 on C5 and C5-6. 4. Multilevel degenerative changes.
--- NOTE | ~2023-09-14 | XR_ITS ---
EXAMINATION: 1. Left foot. 2. Left ankle. CLINICAL INFORMATION: Trauma. Pain. COMPARISON: None. TECHNIQUE: 1. Left foot. 3 views 2. Left ankle. 3 views FINDINGS: 1. Left foot. Comminuted moderately displaced slightly angulated fracture involving the mid distal diaphyseal shaft of the fourth metatarsal. There is osteopenia. There is no dislocation. 2. Left ankle. There is no fracture. No dislocation. Ankle mortise is congruent. XR/XR foot LT 2V IMPRESSION: 1. Left foot. Comminuted fracture of the fourth metatarsal. 2. Left ankle. No acute abnormality of the ankle.
[2023-09-14 14:26] VITALS: BP 115/65; PULSE 82; RESP 19; TEMP 36.6; O2SAT 98; BMI 32.2
--- NOTE | 2023-09-14 14:30 | ECG_ITS ---
Test Reason : S/P DIZZINESS Blood Pressure : / mmHG Vent. Rate : 084 BPM Atrial Rate : 084 BPM P-R Int : 154 ms QRS Dur : 088 ms QT Int : 372 ms P-R-T Axes : 020 -50 046 degrees QTc Int : 439 ms Normal sinus rhythm Left anterior fascicular block Moderate voltage criteria for LVH, may be normal variant ( R in aVL , Alcon product ) Abnormal ECG When compared with ECG of 06-JAN-2021 16:30, No significant change was found Referred By: Generic ED Physician Electronically Signed By:TOM HOLLAND MD
--- NOTE | 2023-09-14 14:31 | ED.GENADULT ---
HPI - General Adult General Chief complaint: Dizziness Stated complaint: L Foot Injury 09/13/23 Dizzy Time Seen by Provider: 09/14/23 19:47 Source: patient Mode of arrival: ambulatory History of Present Illness HPI narrative: 73-year-old female who presents after having an episode of dizziness and fell going up stairs yesterday and reports that she twisted her left ankle but having persistent pain to the left foot. Related Data Home Medications Medication Instructions Recorded Confirmed omeprazole 20 mg capsule,delayed mg PO 01/06/21 release simvastatin 20 mg tablet mg PO 01/06/21 Previous Rx's Medication Instructions Recorded cholecalciferol (vitamin D3) 50 50 mcg PO DAILY #30 caps 07/10/20 mcg (2,000 unit) capsule (Vitamin D3) dulaglutide 0.75 mg/0.5 mL 0.75 mg (0.5 mL) subcut QWEEK #6 mL 09/21/20 subcutaneous pen injector (Trulicity) insulin syringe-needle U-100 0.5 See Rx Instructions .Route DAILY 11/19/20 mL 31 gauge x 5/16 (BD Insulin insulin dependent diabetic #30 ea Syringe Ultra-Fine) naproxen 500 mg tablet 500 mg PO BID PRN pain #30 tabs 01/06/21 glipizide 5 mg tablet 5 mg PO DAILY #90 tabs 01/15/21 lisinopril 2.5 mg tablet 2.5 mg PO DAILY #90 tabs 01/28/21 insulin glargine 100 unit/mL 20 unit (0.2 mL) subcut BEDTIME 03/06/21 subcutaneous solution (Lantus #30 mL U-100 Insulin) cefuroxime axetil 500 mg tablet 500 mg PO BID 7 days #14 tabs 05/11/22 meclizine 12.5 mg tablet 12.5 mg PO TID PRN dizziness #20 05/11/22 tabs Allergies Allergy/AdvReac Type Severity Reaction Status Date / Time pioglitazone [From ACTOS] Allergy Unknown SWELLING , Verified 07/31/20 06:24 diarrhea, feet swell metformin AdvReac Unknown swelling Verified 07/31/20 06:24 in feet, diarrhea, diarrhea Review of Systems Review of Systems: Pertinent positives and negatives as stated in HPI [facility] Past Medical History Source: nursing notes reviewed Medical History Diabetes mellitus Surgical History History of open reduction and internal fixation (ORIF) procedure History of eye surgery History of laparoscopic cholecystectomy History of cataract surgery Family History Family History Father Emphysema lung Mother Diabetes Sister Diabetes Son Diabetes Social History Social History Alcohol intake: never Patient Tobacco Use Status: Former Tobacco user Advance Directives: No Advance Directives Information Provided: No Physical Exam ED Vital Signs: Vital Signs - 24 hr 09/14/23 14:26 09/14/23 19:36 Temperature 98 F 97.6 F Pulse Rate 82 80 Respiratory Rate 19 14 Blood Pressure 115/65 134/56 L Pulse Oximetry 98 98 Oxygen Delivery Method Room Air Room Air BMI result Body Mass Index 32.2 VITAL SIGNS: Reviewed. GENERAL: Well developed, well nourished, in no acute distress. HEAD: Normocephalic/atraumatic EYES: PERRLA, EOMI EARS: Ext canals without abnormality NOSE: Nares patent bilateral OROPHARYNX: no oral lesions noted, posterior pharynx clear NECK: Supple, no adenopathy LUNGS: Normal breath sounds. No adventitious sounds or accessory muscle use. SpO2<98> CARDIOVASCULAR: Regular rate and rhythm without noted murmurs ABDOMEN: Soft, non-tender, non-distended with bowel sounds. MUSCULOSKELETAL: No tenderness, deformities, or effusions noted on gross inspection. EXTREMITIES: No cyanosis, clubbing or edema. LEFT FOOT: Warm, no deformity but noted ecchymosis to the dorsum of the foot, palpable pulses, sensation is intact, no swelling noted over either malleoli, there is midfoot tenderness SKIN: Inspection of the skin reveals no rashes NEUROLOGIC: Alert and oriented x 4. Strength and sensation to light touch were grossly intact x 4. Course Course Course Narrative: RME: 73 yold female with pmh of VErtigo presents to the ED for left ankle/foot pain after falling up stairs due to dizziness yesterday. pain behind right ear. labs/EKG ordered. head CT/Cervical spine Medications Administered Discontinued Medications Generic Name Dose Route Start Last Admin Trade Name Freq PRN Reason Stop Dose Admin Acetaminophen 975 mg 12/20/23 20:17 09/14/23 20:56 Acetaminophen 325 Mg Tablet PO 09/14/23 20:18 975 mg ONCE ONE Administration Medical Decision Making Medical Decision Making [facility] Narrative: 73-year-old female with history and clinical presentation, DDX: Left foot fracture/dislocation, possible infection I reviewed all investigations and hematologic indices show minor leukocytosis without left shift and no anemia or thrombocytopenia. Chemistry indices do not demonstrate an ALEXIA or electrolyte derangements. High sensitivity troponin is undetectable there are no acute changes on EKG. Head and C-spine are negative for evidence of intracranial hemorrhage/fracture/subluxation, x-ray is negative for acute pathology, however left foot x-ray demonstrates a comminuted nondisplaced fracture of the 4th metatarsal. Patient provided with combination analgesics and a postsurgical shoe. Urinalysis negative for UTI. My interpretation is patient experienced an episode of transient unsteadiness resulting and a twisting of her left foot with comminuted 4th metatarsal fracture. Differential Diagnosis Differential Diagnoses: The differential diagnosis associated with the presentation includes Please see the discussion above Admission/Observation Consideration of admission/observation: Escalation of care including admission/observation considered Please see the discussion above Lab Data [facility] Lab Attestation statement: I reviewed the patient's lab results. Please see the discussion above 09/14/23 15:01 09/14/23 15:01 Labs: Lab Results 09/14/23 09/14/23 Range/Units 15:01 20:55 WBC 12.1 H (4.8-10.8) X10*3/uL RBC 5.12 (4.20-5.50) X10*6/uL Hgb 14.6 (12.0-16.0) g/dl Hct 45.3 (37.0-47.0) % MCV 88.5 (80.0-98.0) fL MCH 28.5 (27.0-33.0) pg MCHC 32.2 (31.0-35.0) g/dl RDW 12.4 (11.0-16.0) % Plt Count 360 D (160-400) X10*3/uL MPV 10.5 (9.4-12.3) fL Immature Gran % (Auto) 0.6 H (0.0-0.4) % Neut % (Auto) 69.0 (45-73) % Lymph % (Auto) 21.2 (20-40) % [place] % (Auto) 7.0 (2-11) % Eos % (Auto) 1.0 (0-4) % Baso % (Auto) 1.2 (0-2) % Lymph # (Auto) 2.6 (1.2-4.9) X10*3/uL [place] # (Auto) 0.9 (0.1-1.2) X10*3/uL Eos # (Auto) 0.1 (0.0-0.4) X10*3/uL Baso # (Auto) 0.1 (0.0-0.2) X10*3/uL Abs Immat Gran (auto) 0.07 H (0.00-0.03) X10*3/uL Absolute Neuts (auto) 8.4 H (2.0-8.3) x10*3/uL Absolute Nucleated RBC 0.000 (0.0-0.012) X10*3/uL Nucleated RBC % (auto) 0.0 (0.0-0.2) /100WBC Sodium 141 (135-145) mmol/L Potassium 4.2 (3.3-5.1) mmol/L Chloride 109 H (96-108) mmol/L Carbon Dioxide 23 (22-29) mmol/L Anion Gap 13 (12-20) BUN 17 H (9-16) mg/dL Creatinine 1.13 (0.5-1.4) mg/dL Estim Creat Clear Calc 39.5 Estimated GFR 47 Random Glucose 189 H (60-115) mg/dL Calcium 9.6 D (8.4-10.2) mg/dL Troponin I High Sens < 2.7 (<3.5-17.0) ng/L Urine Color Yellow Urine Appearance Clear Urine pH 5.0 (5.0-9.0) Ur Specific [place] >= 1.030 H (1.005-1.025) Urine Protein Negative (Neg-Trace) mg/dL Urine Glucose (UA) >=1000 H (Negative) mg/dL Urine Ketones Negative (Negative) mg/dL Urine Blood Negative (Negative) Urine Nitrite Negative (Negative) Ur Leukocyte Esterase Negative (Negative) Urine RBC 3-5 H (0-2) /HPF Urine WBC 11-20 H (0-5) /HPF Ur Squamous Epith Cells 0-2 (0-2) /HPF Urine Bacteria None Seen (None Seen) Hyaline Casts 0-2 (0-2) /LPF Urine Yeast Present Independent Interpretation I performed an independent interpretation of an: EKG Interpretation: Normal sinus rhythm, HR-84, no STEMI, AR/QRS/QTC is within normal limits. Radiology Impression Discussion of test interpretation with radiology: I have reviewed the radiologist's reading. Radiologist Impression: Please see the discussion above External Record Review External record reviewed: Outpatient record, Prior outpatient labs and Prior outpatient radiology Chronic Conditions Patient?s care impacted by: Diabetes and Hypertension Critical Care Time Critical Care Time Critical Care Time: Yes Total Critical Care Time: 30 Attestation: I personally attest to this time spent taking care of the patient. Discharge Plan Discharge Clinical Impression: Fracture of left foot Patient Disposition: Home, Self-Care Instructions: Foot Fracture in Adults (ED), Post Surgical Shoe (ED) Additional Instructions: 1. Tylenol 1000 mg, orally, every 6 hours as needed for pain control. Do not exceed 4000 mg within 24 hours. 2. Ibuprofen 400 mg, orally with milk or food, every 6 hours as needed for pain control. 3. Every time that your walking around you need to have the special shoe in place. 4. Please call the office of the orthopedic surgeon that is provided to you below regarding the fracture of your 4th metatarsal of your left foot. 5. Please follow-up with your primary care doctor by calling the office tomorrow. Return to the ER for any worsening symptoms. Prescriptions: No Action cholecalciferol (vitamin D3) [Vitamin D3] 50 mcg (2,000 unit) capsule 50 mcg PO DAILY Qty: 30 11RF dulaglutide [Trulicity] 0.75 mg/0.5 mL pen injector 0.75 mg subcut QWEEK Qty: 6 5RF insulin syringe-needle U-100 [BD Insulin Syringe Ultra-Fine] 0.5 mL 31 gauge x 5/16 syringe See Rx Instructions .ROUTE DAILY Qty: 30 6RF Rx Instructions: 1 syringe daily; naproxen 500 mg tablet 500 mg PO BID PRN (Reason: pain) Qty: 30 0RF glipizide 5 mg tablet 5 mg PO DAILY Qty: 90 0RF lisinopril 2.5 mg tablet 2.5 mg PO DAILY Qty: 90 0RF Lantus U-100 Insulin 100 unit/mL solution 20 unit subcut BEDTIME Qty: 30 1RF meclizine 12.5 mg tablet 12.5 mg PO TID PRN (Reason: dizziness) Qty: 20 0RF cefuroxime axetil 500 mg tablet 500 mg PO BID 7 Days Qty: 14 0RF simvastatin 20 mg tablet PO omeprazole 20 mg capsule,delayed release(DR/EC) PO Referrals: Rita Okeefe PA [Physician Roll Coverer] - Gunnar Timmons MD [Physician] - Interventions: ED Discharge Assessment Last Done: 09/14/23 21:17 Discharge Date/Time: 09/14/23 21:21
[2023-09-14 15:05] LABS: MANUAL DIFF FLAG NO
[2023-09-14 15:08] LABS: Basophils Absolute Auto 0.1 X10*3/uL (0.0-0.2); Basophils Percent Auto 1.2 % (0-2); Eosinophils Absolute Auto 0.1 X10*3/uL (0.0-0.4); Hematocrit 45.3 % (37.0-47.0); Hemoglobin 14.6 g/dl (12.0-16.0); Imm Gran Abs Auto 0.07 X10*3/uL (0.00-0.03); Imm Gran Pct Auto 0.6 % (0.0-0.4); Lymphocytes Absolute Auto 2.6 X10*3/uL (1.2-4.9); Lymphocytes Percent Auto 21.2 % (20-40); Mean Corpuscular HGB Conc 32.2 g/dl (31.0-35.0); Mean Corpuscular Hemoglobin 28.5 pg (27.0-33.0); Mean Corpuscular Volume 88.5 fL (80.0-98.0); Mean Platelet Volume 10.5 fL (9.4-12.3); Monocytes Absolute Auto 0.9 X10*3/uL (0.1-1.2); Neutrophils Absolute Auto 8.4 x10*3/uL (2.0-8.3); Platelet Count 360 X10*3/uL (160-400); Red Blood Count 5.12 X10*6/uL (4.20-5.50); Red Cell Distribution Width 12.4 % (11.0-16.0); White Blood Count 12.1 X10*3/uL (4.8-10.8)
[2023-09-14 15:25] LABS: Anion Gap 13 (12-20); Blood Urea Nitrogen 17 mg/dL (9-16); Calcium 9.6 mg/dL (8.4-10.2); Carbon Dioxide 23 mmol/L (22-29); Chloride 109 mmol/L (96-108); Creatinine Clr Calc Pharmacy 39.5; Estimated Glomerular Filt Rate 47; Glucose Random 189 mg/dL (60-115); Potassium 4.2 mmol/L (3.3-5.1); Sodium 141 mmol/L (135-145)
[2023-09-14 15:35] LABS: Troponin-I High Sensitivity < 2.7 ng/L (<3.5-17.0)
[2023-09-14 19:36] VITALS: BP 134/56; PULSE 80; RESP 14; TEMP 36.4; O2SAT 98
[2023-09-14] MEDS: Acetaminophen 325 MG TABLET 975 MG PO (20:56)
[2023-09-14 21:00] LABS: Appearance Urine Clear; Color Urine Yellow; Glucose Urine UA >=1000 mg/dL (Negative); Leukocyte Esterase Urine Negative (Negative); Nitrite Urine Negative (Negative); Specific Gravity - Urine >= 1.030 (1.005-1.025); UMIC TRIGGER UACC YES; Urine Blood Negative (Negative); Urine Ketones Negative (Negative); Urine Protein Negative (Neg-Trace)
[2023-09-14 21:21] LABS: Bacteria Urine None Seen (None Seen); Hyaline Casts Urine 0-2 /LPF (0-2); Squamous Epithelial Cell Urine 0-2 /HPF (0-2); UACC Culture Trigger YES
== END 2023-09-14 21:21 | disposition home or self-care (01) ==
PROVIDERS: Emergency Provider Student in an Organized Health Care Education/Training Program
DX: S92.902A Unspecified fracture of left foot, initial encounter for closed fracture (principal); R94.31 Abnormal electrocardiogram [ECG] [EKG]; R51.9 Headache, unspecified; M54.2 Cervicalgia; M25.572 Pain in left ankle and joints of left foot; W10.9XXA Fall (on) (from) unspecified stairs and steps, initial encounter; Y93.9 Activity, unspecified; Y92.9 Unspecified place or not applicable; Y99.9 Unspecified external cause status; Z79.899 Other long term (current) drug therapy
CPT/HCPCS: 36415; 70450; 72125; 73600; 73620; 80048; 81001; 81003; 84484; 85025; 87086; 93005; 99284; 99285

== ENCOUNTER → 2023-09-14 14:30 | Outpatient (BNV) | payer MEDICARE, MEDICAID, SELFPAY | PROVIDERS: Visit Provider Internal Medicine Cardiovascular Disease | DX: I44.4 Left anterior fascicular block (principal); R94.31 Abnormal electrocardiogram [ECG] [EKG] | CPT/HCPCS: 93010 ==

== ENCOUNTER 2023-09-28 11:44 | Outpatient (AMB) | payer MEDICARE, MEDICAID, SELFPAY ==
[2023-09-28 12:53] VITALS: BP 120/80; PULSE 85; TEMP 36.9; O2SAT 94
--- NOTE | 2023-09-28 12:53 | MHC.OFFWIV ---
Intake Vital Signs 09/28/23 12:53 Height 4 ft 11 in BP 120/80 Blood Pressure Location Rt brachial Position Sitting Pulse 85 Pulse Source Pulse Oximeter Temp 98.4 F Temp Source Temporal Artery Scan Pulse Oximetry (%) 94 Oxygen Delivery Method Room Air Intake Visit Reasons: EP, right ear blockage Intake Note: Pt is here c/o right ear blockage and dizzy spells for two days. Patient Tobacco Use Status: Former Tobacco user Allergies pioglitazone [From ACTOS] Allergy (Unknown, Verified 09/28/23 13:17) SWELLING , diarrhea, feet swell metformin Adverse Reaction (Unknown, Verified 09/28/23 13:17) swelling in feet, diarrhea, diarrhea Do you need a note to return to daycare/school/sports/work: No HPI EP, right ear blockage HPI Details 73-year-old female presents to the office for a sick visit. Patient is reporting pain in the right ear for the past few days. Throbbing in nature. No fevers or chills. PFS Medical History Diabetes mellitus Surgical History History of open reduction and internal fixation (ORIF) procedure History of eye surgery History of laparoscopic cholecystectomy History of cataract surgery Family History Father Emphysema lung Mother Diabetes Sister Diabetes Son Diabetes Social History Alcohol intake: never Patient Tobacco Use Status: Former Tobacco user Physical Exam Vital Signs: Last Vital Signs Temp 98.4 F 09/28/23 12:53 Pulse 85 09/28/23 12:53 BP 120/80 09/28/23 12:53 Pulse Ox 94 09/28/23 12:53 Oxygen Delivery Method Room Air 09/28/23 12:53 Const General: cooperative and healthy appearing Nutritional Appearance: well nourished Orientation/consciousness: patient oriented x3 Limitations: no limitations HEENT Other: Right ear: Tympanic membrane is red and bulging. Head: Yes normal to inspection Eyes General: appearance normal, both eyes and all related structures Neck Neck: Yes normal visual inspection Chest Chest palpation & inspection: normal palpation of entire chest wall Resp Effort & Inspection: normal respiratory effort Neuro General: patient oriented x3 Assessment & Plan Assessment & Plan (1) Right acute serous otitis media: Code(s): H65.01 - Acute serous otitis media, right ear Plan: Antibiotic called in. If symptoms not better to follow-up here. Coding Level of Care Code Est Pt Level 3 (39741) Diagnoses Right acute serous otitis media H65.01
== END 2023-09-28 13:24 | disposition home or self-care (01) ==
PROVIDERS: Visit Provider Internal Medicine
DX: H65.01 Acute serous otitis media, right ear (principal)
CPT/HCPCS: 99213

== ENCOUNTER 2023-10-03 08:33 | Outpatient (REF) | payer MEDICARE, MEDICAID, SELFPAY | END 2023-10-03 08:34 | disposition home or self-care (01) | LOC: HO.HOSX 08:33 | PROVIDERS: Visit Provider Physician Assistant | DX: Z13.89 Encounter for screening for other disorder (principal) ==

== ENCOUNTER 2023-10-06 07:39 | Outpatient (REF) | payer MEDICARE, MEDICAID, SELFPAY ==
--- NOTE | ~2023-10-06 | XR_ITS ---
EXAMINATION: XR WRIST, RIGHT CLINICAL INFORMATION: Other specified post procedural states. COMPARISON: Right forearm 01/06/2021. TECHNIQUE: PA, lateral, and oblique views of the right wrist. FINDINGS: Again seen is a plate and screw device overlying the distal radius. Hardware is intact. An old healed ulnar fracture is again seen. Degenerative changes are present in the wrist with some subchondral cyst formation in the distal radius. Mild degenerative changes are present at the radiocarpal joint as well as the first CMC joint. No acute fractures. XR/XR wrist RT min 3V IMPRESSION: Unchanged appearances status post ORIF distal radial fracture. Degenerative changes as described above.
== END 2023-10-06 07:40 | disposition home or self-care (01) ==
LOC: HO.HOSX 07:39
PROVIDERS: Visit Provider Orthopaedic Surgery
DX: L98.9 Disorder of the skin and subcutaneous tissue, unspecified (principal); Z96.631 Presence of right artificial wrist joint; Z98.890 Other specified postprocedural states; Z47.1 Aftercare following joint replacement surgery; M79.672 Pain in left foot; S92.345A Nondisplaced fracture of fourth metatarsal bone, left foot, initial encounter for closed fracture; X58.XXXA Exposure to other specified factors, initial encounter; Y93.9 Activity, unspecified; Y92.9 Unspecified place or not applicable; Y99.9 Unspecified external cause status
CPT/HCPCS: 73110; 99202

== ENCOUNTER 2023-10-06 12:33 | Outpatient (AMB) | payer MEDICARE, MEDICAID, SELFPAY ==
--- NOTE | 2023-10-06 12:34 | A.OFFVIS_ITS ---
Intake Vital Signs 10/06/23 12:37 Height 41 ft Weight 159 lb BMI 0.5 Intake Visit Reasons: ov- Right wrist surgery 2017 Intake Note: Samira is a 73 year old right hand dominant female who presents today with complaints of right wrist pain. Hx of ORIF RT WRIST 02/06/19 with NE. Patient reports that she feels like on of her screws are coming out, this was noticed about 1 year ago. She points to a small purple in color growth on the arm, it is not painful Allergies pioglitazone [From ACTOS] Allergy (Unknown, Verified 10/06/23 12:37) SWELLING , diarrhea, feet swell metformin Adverse Reaction (Unknown, Verified 10/06/23 12:37) swelling in feet, diarrhea, diarrhea HPI ov- Right wrist surgery 2017 HPI Details Samira is a 73 year old woman who presents with concerns for her right wrist ORIF. She has a hx of a wrist ORIF, DOS: 02/06/19, by me. She feels for the last ~1 year, that the screws in her wrist have been loosening somehow. [facility] Medical History (Updated 10/06/23 @ 13:56 by Gunnar Timmons MD) Diabetes mellitus Surgical History (Updated 10/06/23 @ 07:40 by Gunnar Timmons MD) History of open reduction and internal fixation (ORIF) procedure History of eye surgery History of laparoscopic cholecystectomy History of cataract surgery Family History Father Emphysema lung Mother Diabetes Sister Diabetes Son Diabetes Social History Alcohol intake: never Patient Tobacco Use Status: Former Tobacco user Review of Systems Const All systems reviewed & are unremarkable except as noted in HPI and below Physical Exam Vital Signs: BMI result Body Mass Index 0.5 Const General: no acute distress, alert and awake Orientation/consciousness: patient oriented x3 HEENT Head: Yes normocephalic and Yes atraumatic Eyes EOM: EOMs intact bilaterally Resp Effort & Inspection: normal respiratory effort and able to speak in complete sentences Cardio Jugular venous distension: no JVD Skin General skin exam: turgor normal Rashes: no rashes Neuro General: patient oriented x3 Extrem Other: well healed incision Painless ROM left wrist Intact epl/fdp/io There is a raidsed bullous lesion 5 mm x 5 mm that is mildly sensitive. It is proximal to the incision and superficial Psych Appearance: grossly normal Affect: normal affect Attitude: cooperative Results Reviewed Results Reviewed: I personally reviewed relevant radiographs. Left DR fracture with hardware in anatomic alignment with no hardware complications Assessment & Plan Assessment & Plan (1) History of open reduction and internal fixation (ORIF) procedure: Comment: 02/07/2019 Open reduction and internal fixation of right distal radius; closed reduction with percutaneous pinning of the right distal radioulnar joint - Dr. Timmons Code(s): Z98.890 - Other specified postprocedural states Plan: No intervention warranted. Wrist and hardware are doign well (2) Skin lesion: Code(s): L98.9 - Disorder of the skin and subcutaneous tissue, unspecified Plan: Will see PCP. Skin lesion Plan Scribed for Gunnar Timmons MD by Manuel Ivy, certified medical biller, on 10/06/23 at 1:00 PM, EST. Orders: Orders XR wrist RT min 3V Today Z98.890 - Other specified postprocedural states Coding Level of Care Code New Pt Level 3 (46161) Diagnoses History of open reduction and internal fixation (ORIF) procedure Z98.890 Skin lesion L98.9
== END 2023-10-06 13:13 | disposition home or self-care (01) ==
PROVIDERS: Visit Provider Orthopaedic Surgery
DX: M25.531 Pain in right wrist (principal); S62.91XD Unspecified fracture of right hand, subsequent encounter for fracture with routine healing; L98.9 Disorder of the skin and subcutaneous tissue, unspecified
CPT/HCPCS: 99203

== ENCOUNTER 2024-03-05 08:59 | Outpatient (AMB) | payer MEDICARE, MEDICAID, SELFPAY ==
[2024-03-05 09:10] VITALS: BP 132/68; PULSE 79; TEMP 36.5; O2SAT 96
--- NOTE | 2024-03-05 09:10 | AM.OFFWIN_ITS ---
Intake Vital Signs 03/05/24 09:10 Height 4 ft 11 in BMI Reason not done Patient refused/unable BP 132/68 Blood Pressure Location Lt brachial Position Sitting Pulse 79 Pulse Source Pulse Oximeter Temp 97.7 F Temp Source Oral Pulse Oximetry (%) 96 Oxygen Delivery Method Room Air Intake Visit Reasons: EP dizzy Spells/neck pain Intake Note: Pt is here today for dizzy spells and neck pain, pt states she noticed Tuesday Patient Tobacco Use Status: Former Tobacco user Allergies pioglitazone [From ACTOS] Allergy (Unknown, Verified 03/05/24 09:10) SWELLING , diarrhea, feet swell metformin Adverse Reaction (Unknown, Verified 03/05/24 09:10) swelling in feet, diarrhea, diarrhea Do you need a note to return to daycare/school/sports/work: No HPI HPI Comments History of Present Illness Details Patient presents to the walk-in today for sick visit Complaining of right-sided neck pain for last 3 days. Worse with looking to the right Denies inciting injury Patient also complains of intermittent dizzy spells while walking. Feels off balance, not like room is spinning. Denies dizziness at this time. This has been going on for many years. She has been discussing with her PCP at [place], visit notes unavailable for review. Reports she was diagnosed with vertigo in the past She is diabetic, denies any recent high or low blood sugars Reports dizziness only occurs occasionally while she is walking. Denies any recent falls, head injuries. Denies chest pain, shortness of breath, palpitations, headaches, unilateral weakness, confusion, nausea, vomiting or diarrhea [facility] Medical History (Updated 03/05/24 @ 10:04 by Shannon Owusu APRN, HATCHERY MAN) Diabetes mellitus Surgical History (Updated 10/06/23 @ 07:40 by Gunnar Timmons MD) History of open reduction and internal fixation (ORIF) procedure History of eye surgery History of laparoscopic cholecystectomy History of cataract surgery Family History Father Emphysema lung Mother Diabetes Sister Diabetes Son Diabetes Social History Alcohol intake: never Patient Tobacco Use Status: Former Tobacco user Review of Systems Const All systems reviewed & are unremarkable except as noted in HPI and below Physical Exam Vital Signs: Last Vital Signs Temp 97.7 F 03/05/24 09:10 Pulse 79 03/05/24 09:10 BP 132/68 03/05/24 09:10 Pulse Ox 96 03/05/24 09:10 Oxygen Delivery Method Room Air 03/05/24 09:10 General: awake, alert, oriented. Answers questions appropriately. Fully engaged in examination. Skin: warm, dry, intact HEENT: Normocephalic. Hearing intact. Cardiac: External chest normal in appearance. Respiratory: No cough, audible wheezing or stridor. Abdomen: without gross distension. MS: No obvious swelling or deformities. Able to transition from sit to stand unassisted. Ambulates with bilaterally normal heel strike and toe off CS: nontender to palpation midline cervical vertebrae in cervical paraspinal muscles, pain with right lateral rotation. Spurling negative. Nontender over upper middle lower trapezius. Neurological: Oriented to person, place, time and situation. Thought process intact. No gait abnormalities appreciated. Negative pronator drift Psychiatric: Appropriate mood and affect. Good judgment and insight. Const Orientation/consciousness: oriented to person, oriented to place and oriented to time Eyes Pupils: Equal, round and reactive pupils present Neuro General: oriented to person, oriented to place, oriented to time, no focal motor deficits and CN's II-XI intact bilaterally Cranial nerves: Yes Equal, round and reactive pupils present, Yes Nystagmus not present, Yes Normal facial strength present, Yes Midline tongue present, Yes Ability to bilaterally rotate head present and Yes Ability to bilaterally elevate shoulders present Motor exam (neuro): Pronator motor function not present and Normal motor muscle tone present throughout Results AMB Random Glucose (hemocue) AMB Random Glucose (hemocue) 162 mg/dL Last Edit by WALLACE Reeves on 03/05/24 09:23 Results Reviewed Results Reviewed: Laboratory Last Values Random Glu (Clinic) 162 mg/dL 03/05/24 09:22 XR C-spine: no fracture Assessment & Plan Assessment & Plan (1) Cervicalgia: Code(s): M54.2 - Cervicalgia (2) Vertigo: Code(s): R42 - Dizziness and giddiness Plan Diclofenac 50 mg p.o. daily, patient advised on cautions for use including avoidance of [id number] nonsteroidal anti-inflammatory medications Continue with Tylenol as needed Meclizine twice daily as needed for dizziness. Transition from sit to stand slowly. Drink plenty of fluids to stay hydrated Monitor blood sugar closely Follow up with PCP to further discuss vertigo and referral to ENT/vestibular rehab. Follow up with PCP or return here for any new or worsening symptoms Patient advised on red flag symptoms and when to seek treatment in the emergency room Orders: Orders AMB Random Glucose (hemocue) Today Z13.9 - Encounter for screening, unspecified XR cervical spine 3V Today M54.2 - Cervicalgia Medications: New meclizine 12.5 mg PO BID PRN 14 tabs 0RF dizziness diclofenac potassium 50 mg PO DAILY 14 tabs 0RF Coding Level of Care Code Est Pt Level 4 (77413) Diagnoses Cervicalgia M54.2 Vertigo R42
== END 2024-03-05 10:08 | disposition home or self-care (01) ==
PROVIDERS: Visit Provider Registered Nurse Emergency
DX: M54.2 Cervicalgia (principal); R42 Dizziness and giddiness
CPT/HCPCS: 82948; 99214

== ENCOUNTER 2024-03-05 09:33 | Outpatient (REF) | payer MEDICARE, MEDICAID, SELFPAY ==
--- NOTE | ~2024-03-05 | XR_ITS ---
EXAMINATION: XR CERVICAL SPINE CLINICAL INFORMATION: Cervicalgia COMPARISON: None available. TECHNIQUE: 4 views of the cervical spine were obtained. FINDINGS: The tip of the odontoid is obscured on the open-mouth view. C6 and C7 are obscured by the soft tissues of the patient's shoulder on the lateral view. C6 and C7 are also not demonstrated on the Swimmer's view. There is no evidence of fracture. Prevertebral soft tissues are within normal limits. There is marked disc space narrowing with marginal ossified formation at C5-C6. There is mild anterolisthesis of C4 respect to C5 there is straightening of the visualized portions of the cervical spine. There is multilevel mild degenerative change of the facet joints. XR/XR cervical spine 3V IMPRESSION: 1. Marked degenerative disc disease at C5-C6. 2. Mild anterolisthesis of C4 respect to C5. 3. Multilevel mild degenerative change of the facet joints.
== END 2024-03-05 09:34 | disposition home or self-care (01) ==
LOC: HO.HMGCX 09:33
PROVIDERS: Visit Provider Registered Nurse Emergency
DX: M54.2 Cervicalgia (principal)
CPT/HCPCS: 72040

== ENCOUNTER 2024-05-09 09:51 | Outpatient (AMB) | payer MEDICARE, MEDICAID, SELFPAY ==
--- NOTE | 2024-05-09 09:52 | AM.OFFWIN_ITS ---
Intake Vital Signs 05/09/24 09:54 Height 4 ft 11 in Weight 155 lb BMI 31.3 BP 110/70 Blood Pressure Location Rt brachial Position Sitting Pulse 67 Pulse Source Pulse Oximeter Pulse Oximetry (%) 97 Oxygen Delivery Method Room Air Intake Visit Reasons: EP- Pain RT side of chest Intake Note: Patient here for right sided chest pain. Denies difficulty breathing or pain radiating anywhere else besides shoulder Patient Tobacco Use Status: Former Tobacco user Allergies pioglitazone [From ACTOS] Allergy (Unknown, Verified 05/09/24 09:56) SWELLING , diarrhea, feet swell metformin Adverse Reaction (Unknown, Verified 05/09/24 09:56) swelling in feet, diarrhea, diarrhea Do you need a note to return to daycare/school/sports/work: No HPI HPI Comments History of Present Illness Details Patient is a 74-year-old female complaining of right-sided chest pain which radiates to her right shoulder. She says it started about 5 hours ago. She denies any nausea, sweating, vomiting, abdominal pain, pain when she moves her arm, shortness of breath, neck pain or dizziness. She has not tried to do anything to make it better. She denies lifting anything heavier straining herself in any way or any trauma to the area. She states it does not hurt when she pushes on the area. [facility] Medical History (Updated 05/09/24 @ 10:08 by Sarahy Mancini PA-C) Diabetes mellitus Surgical History (Updated 10/06/23 @ 07:40 by Gunnar Timmons MD) History of open reduction and internal fixation (ORIF) procedure History of eye surgery History of laparoscopic cholecystectomy History of cataract surgery Family History Father Emphysema lung Mother Diabetes Sister Diabetes Son Diabetes Social History Alcohol intake: never Patient Tobacco Use Status: Former Tobacco user Review of Systems Const All systems reviewed & are unremarkable except as noted in HPI and below Physical Exam Vital Signs: Last Vital Signs Pulse 67 05/09/24 09:54 BP 110/70 05/09/24 09:54 Pulse Ox 97 05/09/24 09:54 Oxygen Delivery Method Room Air 05/09/24 09:54 BMI result Body Mass Index 31.3 Const General: cooperative, healthy appearing, comfortable, no acute distress and well developed Orientation/consciousness: patient oriented x3 Limitations: no limitations HEENT Head: Yes normal to inspection Ears: hearing grossly normal bilaterally General nose exam: Normal external nose present Face and sinus: Yes normal facial exam Eyes General: appearance normal, both eyes and all related structures Neck Neck: Yes normal visual inspection and Yes full ROM Chest Chest palpation & inspection: normal inspection of the chest, normal palpation of entire chest wall and no tenderness Resp Effort & Inspection: normal respiratory effort and able to speak in complete sentences Auscultation: clear to auscultation bilaterally Cardio Rate: regular rate Rhythm: regular rhythm Heart sounds: normal S1 and S2 GI Inspection: Yes normal to inspection Palpation (GI): Soft to palpation and nontender Skin General skin exam: no rashes or lesions noted Neuro General: patient oriented x3 Extrem General: Yes normal to inspection Office Procedures EKG [id number]-[id number], Complete Results Reviewed Results Reviewed: Previous EKG Assessment & Plan Assessment & Plan (1) Right-sided chest pain: Code(s): R07.9 - Chest pain, unspecified Plan: EKG in office showed normal sinus rhythm @70BPM, no acute changes, 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 However with her presentation, needs to go to ED for further workup. Plan see above Coding Level of Care Code New Pt Level 5 (59031) Diagnoses Right-sided chest pain R07.9 CPT Codes EKG - CPT: 40775-[id number], Complete ([id number])
[2024-05-09 09:54] VITALS: BP 110/70; PULSE 67; O2SAT 97; BMI 31.3
== END 2024-05-09 10:45 | disposition home or self-care (01) ==
PROVIDERS: Visit Provider Physician Assistant
DX: R07.9 Chest pain, unspecified (principal)
CPT/HCPCS: 93000; 99214

== ENCOUNTER 2024-05-09 10:44 | Emergency (ER) | payer MEDICARE, MEDICAID, SELFPAY ==
--- NOTE | ~2024-05-09 | XR_ITS ---
EXAMINATION: XR CHEST CLINICAL INFORMATION: Right-sided chest pain COMPARISON: Chest radiograph 07/04/2016 TECHNIQUE: 2 views of the chest were obtained. FINDINGS: The lungs are hypoexpanded. No focal consolidation. No pleural effusions or pneumothorax. The cardiomediastinal silhouette is within normal limits. Mild aortic arch calcifications. No acute osseous abnormality. XR/XR chest 2V IMPRESSION: No acute pulmonary disease.
[2024-05-09 11:00] VITALS: BP 141/67; PULSE 77; RESP 16; TEMP 36.8; O2SAT 94; BMI 31.3
--- NOTE | 2024-05-09 11:04 | ECG_ITS ---
Test Reason : CHEST PAIN Blood Pressure : / mmHG Vent. Rate : 074 BPM Atrial Rate : 074 BPM P-R Int : 148 ms QRS Dur : 092 ms QT Int : 394 ms P-R-T Axes : 037 -51 041 degrees QTc Int : 437 ms Normal sinus rhythm Left anterior fascicular block Abnormal ECG When compared with ECG of 14-SEP-2023 14:55, No significant change was found Referred By: Generic ED Physician Electronically Signed By:FELIPE CORTEZ
--- NOTE | 2024-05-09 11:20 | ED.CHESTPAIN ---
HPI - Chest Pain General Chief Complaint: Chest Pain Stated Complaint: UC sent over for bloodwork ? Time Seen by Provider: 05/09/24 11:10 Source: patient Mode of arrival: ambulatory Limitations: no limitations History of Present Illness ED Provider: STEPHANIE SHEPPARD narrative: 74 yo female with PMH of DM, HTN, GERD, hypothyroidism, HLD here with c/o R sided intermittent chest pain no cough, fevers, no n/v dyspnea. No pain with exertion or movements. Hurts to take a deep breath. Has never had clot before. No known problems with her heart. MD complaint: chest pain Onset (ago): day(s) (1) Timing of current episode: episodic Prior episodes: No Onset: during rest Pain location: right chest Pain radiation: none Severity: mild Quality: sharp Relieving factors: nothing Exacerbating factors: inspiration Treatment prior to arrival: none Related Data Home Medications ?Medication ?Instructions ?Recorded ?Confirmed omeprazole 20 mg capsule,delayed mg PO 01/06/21 release simvastatin 20 mg tablet mg PO 01/06/21 semaglutide 14 mg tablet (Rybelsus) 14 mg PO QAM 10/06/23 levothyroxine 25 mcg tablet 25 mcg PO DAILY 03/05/24 empagliflozin 10 mg tablet 2.5 mg PO DAILY 05/09/24 (Jardiance) Previous Rx's ?Medication ?Instructions ?Recorded cholecalciferol (vitamin D3) 50 50 mcg PO DAILY #30 caps 07/10/ mcg (2,000 unit) capsule (Vitamin D3) insulin syringe-needle U-100 0.5 See Rx Instructions .Route DAILY 11/19/20 mL 31 gauge x 5/16 (BD Insulin insulin dependent diabetic #30 ea Syringe Ultra-Fine) glipizide 5 mg tablet 5 mg PO DAILY #90 tabs 01/15/21 lisinopril 2.5 mg tablet 2.5 mg PO DAILY #90 tabs 01/28/21 insulin glargine 100 unit/mL 20 unit (0.2 mL) subcut BEDTIME 03/06/21 subcutaneous solution (Lantus #30 mL U-100 Insulin) diclofenac potassium 50 mg tablet 50 mg PO DAILY #14 tabs 03/05/24 meclizine 12.5 mg tablet 12.5 mg PO BID PRN dizziness #14 03/05/24 tabs Allergies Allergy/AdvReac Type Severity Reaction Status Date / Time pioglitazone [From ACTOS] Allergy Unknown SWELLING , Verified 05/09/24 11:04 diarrhea, feet swell metformin AdvReac Unknown swelling Verified 05/09/24 11:04 in feet, diarrhea, diarrhea Review of Systems Review of Systems: Constitutional : No Weight loss, No Fever, No Chills ENT/Mouth : No sore throat, No Rhinorrhea Eyes: No Eye Pain, No Swelling Cardiovascular : pos Chest Pain, no SOB, no Dyspnea on Exertion, No Orthopnea, No Edema, No Palpitations Respiratory : No Cough, No Sputum Gastrointestinal : no Nausea, No Vomiting, No Diarrhea, No abdominal Pain, No Hematochezia, No Melena Genitourinary : No Dysuria, No Urinary Frequency Musculoskeletal : No joint pain, No Myalgias, No Joint Swelling Skin : No Skin Lesions, No rash Neuro : No Weakness, No Numbness, No Dizziness, No Headache All other systems reviewed and are negative PMFSH Past Medical History Attestation statement: The following information was validated with the patient. Source: old records reviewed Medical History Diabetes mellitus Surgical History History of open reduction and internal fixation (ORIF) procedure History of eye surgery History of laparoscopic cholecystectomy History of cataract surgery Family History Family History Father Emphysema lung Mother Diabetes Sister Diabetes Son Diabetes Social History Social History Alcohol intake: never Patient Tobacco Use Status: Former Tobacco user Advance Directives: No Advance Directives Information Provided: No Physical Exam Vital Signs: Vital Signs: Last Vital Signs Temp 98.1 F 05/09/24 11:45 Pulse 70 05/09/24 11:45 Resp 15 05/09/24 11:45 BP 131/55 L 05/09/24 11:45 Pulse Ox 93 05/09/24 11:45 O2 Del Method Room Air 05/09/24 11:45 BMI result Body Mass Index 31.3 Appearance: Alert. Oriented X3. No acute distress. Eyes: Pupils equal, round and reactive to light. ENT: Pharynx normal. Neck: Normal inspection. Neck supple. CVS: Normal heart rate and rhythm. Pulses normal. Respiratory: No respiratory distress. Breath sounds normal. Abdomen: Soft and nontender. Skin: Skin warm and dry. Normal skin color. Normal skin turgor. Extremities: No lower extremity edema. No calf ttp Neuro: Oriented X 3. No motor deficit. No sensory deficit. Medical Decision Making Medical Decision Making [facility] Narrative: 74 yo female with PMH of DM, HTN, GERD, hypothyroidism, HLD here with c/o R sided intermittent pleuritic chest pain though denies chest pain now at this time will need basic labs, EKG, troponin x 1, ddimer - pain is atypical not related to exertion denies hx of CAD, denies risk factors for VTE will obtain ddimer for risk stratification. She is not in pain now. Differential Diagnosis Differential Diagnoses: The differential diagnosis associated with the presentation includes atypical chest pain, VTE, MSK pain Admission/Observation Consideration of admission/observation: Escalation of care including admission/observation considered atypical symptoms, nonischemic EKG, trop flat, ddimer negative stable for DC Lab Data [facility] Lab Attestation statement: I reviewed the patient's lab results. 05/09/24 11:37 05/09/24 11:37 Labs: Lab Results 05/09/24 Range/Units 11:37 WBC 10.4 (4.8-10.8) X10*3/uL RBC 4.95 (4.20-5.50) X10*6/uL Hgb 14.7 (12.0-16.0) g/dl Hct 44.4 (37.0-47.0) % MCV 89.7 (80.0-98.0) fL MCH 29.7 (27.0-33.0) pg MCHC 33.1 (31.0-35.0) g/dl RDW 13.2 (11.0-16.0) % Plt Count 223 D (160-400) X10*3/uL MPV 11.1 (9.4-12.3) fL Immature Gran % (Auto) 0.7 H (0.0-0.4) % Neut % (Auto) 62.5 (45-73) % Lymph % (Auto) 26.0 (20-40) % [place] % (Auto) 7.7 (2-11) % Eos % (Auto) 1.7 (0-4) % Baso % (Auto) 1.4 (0-2) % Lymph # (Auto) 2.7 (1.2-4.9) X10*3/uL [place] # (Auto) 0.8 (0.1-1.2) X10*3/uL Eos # (Auto) 0.2 (0.0-0.4) X10*3/uL Baso # (Auto) 0.1 (0.0-0.2) X10*3/uL Abs Immat Gran (auto) 0.07 H (0.00-0.03) X10*3/uL Absolute Neuts (auto) 6.5 (2.0-8.3) x10*3/uL Absolute Nucleated RBC 0.000 (0.0-0.012) X10*3/uL Nucleated RBC % (auto) 0.0 (0.0-0.2) /100WBC PT 11.5 (11.1-13.3) SEC INR 0.9 (0.9-1.1) D-Dimer High Sensitivty 216 NG/ML Sodium 140 (135-145) mmol/L Potassium 4.1 (3.3-5.1) mmol/L Chloride 109 H (96-108) mmol/L Carbon Dioxide 21 L (22-29) mmol/L Anion Gap 14 (12-20) BUN 15 (9-16) mg/dL Creatinine 0.98 (0.5-1.4) mg/dL Estim Creat Clear Calc 44.3 Estimated GFR 56 Random Glucose 109 (60-115) mg/dL Calcium 9.1 (8.4-10.2) mg/dL Troponin I High Sens < 2.7 (<3.5-17.0) ng/L COVID-19 (SEAN) Negative (Negative) COVID-19 Clin Com See Note Independent Interpretation I performed an independent interpretation of an: EKG and Plain X-Ray (normal ) Interpretation: Rate: 74 Rhythm: NSR [place]: left Normal P waves. Normal SUSAN. Normal QRS complex. ST T wave : flat t wave V1, no STEFAN qTC: 437 prior studies: no acute ischemia The study has been interpreted contemporaneously by me. . Radiology Impression Discussion of test interpretation with radiology: I have reviewed the radiologist's reading. Independent Historian Clinical information obtained from an independent historian. History obtained from or confirmed by: Other (family) External Record Review External record reviewed: Office record Discharge Plan Discharge Clinical Impression: Atypical chest pain Patient Disposition: Home, Self-Care Instructions: Chest Pain (ED) Additional Instructions: chest xray normal tests of heart negative blood clot test negative EKG reassuring call your doctor for outpatient stress test return for any worsening symptoms or concerns. Prescriptions: No Action cholecalciferol (vitamin D3) [Vitamin D3] 50 mcg (2,000 unit) capsule 50 mcg PO DAILY Qty: 30 11RF insulin syringe-needle U-100 [BD Insulin Syringe Ultra-Fine] 0.5 mL 31 gauge x 5/16 syringe See Rx Instructions .ROUTE DAILY Qty: 30 6RF Rx Instructions: 1 syringe daily; glipizide 5 mg tablet 5 mg PO DAILY Qty: 90 0RF lisinopril 2.5 mg tablet 2.5 mg PO DAILY Qty: 90 0RF Lantus U-100 Insulin 100 unit/mL solution 20 unit subcut BEDTIME Qty: 30 1RF simvastatin 20 mg tablet PO omeprazole 20 mg capsule,delayed release(DR/EC) PO levothyroxine 25 mcg tablet 25 mcg PO DAILY diclofenac potassium 50 mg tablet 50 mg PO DAILY Qty: 14 0RF meclizine 12.5 mg tablet 12.5 mg PO BID PRN (Reason: dizziness) Qty: 14 0RF Jardiance 10 mg tablet 2.5 mg PO DAILY Rybelsus 14 mg tablet 14 mg PO QAM Print Language: Sinhala
[2024-05-09 11:43] LABS: MANUAL DIFF FLAG NO
[2024-05-09 11:45] VITALS: BP 131/55; PULSE 70; RESP 15; TEMP 36.7; O2SAT 93
[2024-05-09 11:45] LABS: Basophils Absolute Auto 0.1 X10*3/uL (0.0-0.2); Basophils Percent Auto 1.4 % (0-2); Eosinophils Absolute Auto 0.2 X10*3/uL (0.0-0.4); Eosinophils Percent Auto 1.7 % (0-4); Hematocrit 44.4 % (37.0-47.0); Hemoglobin 14.7 g/dl (12.0-16.0); Imm Gran Abs Auto 0.07 X10*3/uL (0.00-0.03); Imm Gran Pct Auto 0.7 % (0.0-0.4); Lymphocytes Absolute Auto 2.7 X10*3/uL (1.2-4.9); Mean Corpuscular HGB Conc 33.1 g/dl (31.0-35.0); Mean Corpuscular Hemoglobin 29.7 pg (27.0-33.0); Mean Corpuscular Volume 89.7 fL (80.0-98.0); Mean Platelet Volume 11.1 fL (9.4-12.3); Monocytes Absolute Auto 0.8 X10*3/uL (0.1-1.2); Monocytes Percent Auto 7.7 % (2-11); Neutrophils Absolute Auto 6.5 x10*3/uL (2.0-8.3); Neutrophils Percent Auto 62.5 % (45-73); Platelet Count 223 X10*3/uL (160-400); Red Blood Count 4.95 X10*6/uL (4.20-5.50); Red Cell Distribution Width 13.2 % (11.0-16.0); White Blood Count 10.4 X10*3/uL (4.8-10.8)
[2024-05-09 11:50] LABS: INTERNATIONAL NORM RATIO 0.9 (0.9-1.1); Prothrombin Time 11.5 SEC (11.1-13.3)
[2024-05-09 11:56] LABS: Anion Gap 14 (12-20); Blood Urea Nitrogen 15 mg/dL (9-16); Calcium 9.1 mg/dL (8.4-10.2); Carbon Dioxide 21 mmol/L (22-29); Chloride 109 mmol/L (96-108); Creatinine Clr Calc Pharmacy 44.3; Estimated Glomerular Filt Rate 56; Glucose Random 109 mg/dL (60-115); Potassium 4.1 mmol/L (3.3-5.1); Sodium 140 mmol/L (135-145)
[2024-05-09 12:01] LABS: COVID-19 Test Negative (Negative); IDNOW Serial# 152EDE1D
[2024-05-09 12:07] LABS: Troponin-I High Sensitivity < 2.7 ng/L (<3.5-17.0)
--- NOTE | 2024-05-09 12:10 | MHC.EDTECH ---
This tech made call to lab regarding d-dimer not received in. Per Yosvany in lab they processed specimen as pt/inr and did not perform d-dimer test. Per Yosvany he will add the test on to the specimen we sent down.
[2024-05-09 12:30] LABS: D Dimer High Sensitivity 216 NG/ML
[2024-05-09 12:40] VITALS: BP 130/66; PULSE 72; RESP 15; TEMP 36.6; O2SAT 95
== END 2024-05-09 12:46 | disposition home or self-care (01) ==
PROVIDERS: Emergency Provider Emergency Medicine
DX: R07.89 Other chest pain (principal); E11.9 Type 2 diabetes mellitus without complications; I10 Essential (primary) hypertension; Z79.899 Other long term (current) drug therapy; Z11.52 Encounter for screening for COVID-19
CPT/HCPCS: 36415; 71046; 80048; 84484; 85025; 85379; 85610; 87635; 93005; 99283; 99284

== ENCOUNTER → 2024-05-09 11:04 | Outpatient (BNV) | payer MEDICARE, MEDICAID, SELFPAY | PROVIDERS: Emergency Provider Emergency Medicine; Visit Provider Internal Medicine | DX: R07.9 Chest pain, unspecified (principal); R94.31 Abnormal electrocardiogram [ECG] [EKG] | CPT/HCPCS: 93010 ==

== ENCOUNTER 2024-07-30 15:26 | Emergency (ER) | payer MEDICARE, MEDICAID, SELFPAY ==
--- NOTE | ~2024-07-30 | XR_ITS ---
EXAMINATION: XR HAND/WRIST, LEFT CLINICAL INFORMATION: Fall. COMPARISON: No similar priors. TECHNIQUE: PA, lateral, and oblique views of the left hand and wrist. FINDINGS: No acute fracture or subluxation. Decreased bone mineralization. Moderate multifocal degenerative osteoarthritis more noticeable in the first carpometacarpal joint and distal interphalangeal joints. No significant soft tissue abnormality. Vascular calcifications are present. XR/XR hand wrist LT IMPRESSION: 1. No acute fracture or malalignment. 2. Moderate multifocal degenerative osteoarthritis. 3. Decreased bone mineralization. Electronically signed by: Ruth Liu MD 07/30/2024 05:39 PM EST
--- NOTE | ~2024-07-30 | XR_ITS ---
EXAMINATION: XR KNEE, LEFT CLINICAL INFORMATION: Fall. COMPARISON: None available. TECHNIQUE: Four views of the left knee. FINDINGS: No acute fracture or dislocation. Mild joint space narrowing of the medial and patellofemoral compartments. No erosive changes or chondrocalcinosis. No joint effusion. Vascular calcifications are present. XR/XR knee LT 4V IMPRESSION: No acute fracture or malalignment. Mild degenerative osteoarthritis. Electronically signed by: Ruth Liu MD 07/30/2024 05:37 PM EST
[2024-07-30 15:50] VITALS: BP 144/76; PULSE 77; RESP 20; TEMP 36.6; O2SAT 95; BMI 32.6
--- NOTE | 2024-07-30 15:53 | ECG_ITS ---
Test Reason : FALL Blood Pressure : / mmHG Vent. Rate : 073 BPM Atrial Rate : 073 BPM P-R Int : 156 ms QRS Dur : 100 ms QT Int : 386 ms P-R-T Axes : 021 -49 021 degrees QTc Int : 425 ms Normal sinus rhythm Left anterior fascicular block Moderate voltage criteria for LVH, may be normal variant ( R in aVL , [place] product ) Abnormal ECG When compared with ECG of 09-MAY-2024 11:04, No significant change was found Referred By: Steven Bender Electronically Signed By:TOM HOLLAND MD
[2024-07-30 15:59] LABS: Glucose, Whole Blood 276 mg/dL (60-115)
--- NOTE | 2024-07-30 16:43 | ED.GENADULT ---
HPI - General Adult General Chief complaint: Fall Stated complaint: Dizzy L Knee Pain S/P Fall Time Seen by Provider: 07/30/24 21:43 Source: patient and family (Sister) Mode of arrival: ambulatory Limitations: no limitations History of Present Illness ED Provider: DR. Hyde HPI narrative: 74-year-old female walked to the emergency department for evaluation after a mechanical fall, patient stated that she felt slightly dizzy and lost balance causing her to fall patient protected her fall with her hands and knees, no head injury, no LOC, no neck pain, no AC. Patient has a small abrasion on the left hand and left knee, able to ambulate in the emergency department, no headache, no weakness, no numbness, no chest pain. Lives home with her and her sister mostly independent and functional. Patient is ambulating in the emergency department patient we did in the emergency department close to 6 hours due to high volume no headache, no neurological deficit. Related Data Home Medications ?Medication ?Instructions ?Recorded ?Confirmed omeprazole 20 mg capsule,delayed mg PO 01/06/21 release simvastatin 20 mg tablet mg PO 01/06/21 semaglutide 14 mg tablet (Rybelsus) 14 mg PO QAM 10/06/23 levothyroxine 25 mcg tablet 25 mcg PO DAILY 03/05/24 empagliflozin 10 mg tablet 2.5 mg PO DAILY 05/09/24 (Jardiance) Previous Rx's ?Medication ?Instructions ?Recorded cholecalciferol (vitamin D3) 50 50 mcg PO DAILY #30 caps 07/10/20 mcg (2,000 unit) capsule (Vitamin D3) insulin syringe-needle U-100 0.5 See Rx Instructions .Route DAILY 11/19/20 mL 31 gauge x 5/16 (BD Insulin insulin dependent diabetic #30 ea Syringe Ultra-Fine) glipizide 5 mg tablet 5 mg PO DAILY #90 tabs 01/15/21 lisinopril 2.5 mg tablet 2.5 mg PO DAILY #90 tabs 01/28/21 insulin glargine 100 unit/mL 20 unit (0.2 mL) subcut BEDTIME 03/06/21 subcutaneous solution (Lantus #30 mL U-100 Insulin) diclofenac potassium 50 mg tablet 50 mg PO DAILY #14 tabs 03/05/24 meclizine 12.5 mg tablet 12.5 mg PO BID PRN dizziness #14 03/05/24 tabs Allergies Allergy/AdvReac Type Severity Reaction Status Date / Time pioglitazone [From ACTOS] Allergy Unknown SWELLING , Verified 07/30/24 15:53 diarrhea, feet swell metformin AdvReac Unknown swelling Verified 07/30/24 15:53 in feet, diarrhea, diarrhea Review of Systems Review of Systems: All other systems are reviewed and are negative Constitutional: Reports as per HPI and Reports no additional constitutional complaints Eyes: Reports as per HPI and Reports no additional eye complaints Reports system reviewed and no additional complaints, except as documented Cardiovascular: Reports as per HPI and Reports no additional cardiovascular complaints Respiratory: Reports as per HPI and Reports no additional respiratory complaints Gastrointestinal: Reports as per HPI and Reports no additional gastrointestinal complaints Genitourinary: Reports no additional female genitourinary complaints Musculoskeletal: Reports no additional musculoskeletal complaints Skin/Breast: Reports system reviewed and no additional complaints, except as docu Psychiatric: Reports no additional psychiatric complaints Endocrine: Reports no additional endocrine complaints Hematologic/Lymphatic: Reports no additional hematologic/lymphatic complaints Allergic/Immunologic: Reports no additional allergic/immunologic complaints Reports system reviewed and no additional complaints, except as documented and Reports Abnormal speech present [facility] Past Medical History Medical History Diabetes mellitus Surgical History History of open reduction and internal fixation (ORIF) procedure History of eye surgery History of laparoscopic cholecystectomy History of cataract surgery Family History Family History Father Emphysema lung Mother Diabetes Sister Diabetes Son Diabetes Social History Social History Alcohol intake: never Patient Tobacco Use Status: Former Tobacco user Smoked in Last 30 Days: No Use of substances other than those prescribed or required for medical reasons: No Advance Directives: No Advance Directives Information Provided: No Physical Exam ED Vital Signs: Vital Signs - 24 hr 07/30/24 15:50 07/30/24 21:23 07/30/24 22:18 Temperature 97.8 F 98.3 F 98.4 F Pulse Rate 77 66 69 Respiratory Rate 20 17 13 Blood Pressure 144/76 H 143/71 H 144/70 H Pulse Oximetry 95 96 96 Oxygen Delivery Method Room Air Room Air Room Air BMI result Body Mass Index 32.6 Vital signs have been reviewed and appear to be correct. Blood pressure elevated. Heart rate normal. Respiratory rate normal. Temperature normal. Oxygen saturation normal. Appearance: Alert. Oriented X3. No acute distress. Head: Normal external exam. Normocephalic. Atraumatic. No Rey signs noted. No raccoon eyes noted Eyes: PERRLA. EOMI. Conjunctiva and sclera normal. Eyelids normal. ENT: TM's Normal. Pharynx normal. Uvula midline. Moist mucous membranes. No trismus noted. No drooling noted. No muffled voice noted. Neck: Normal inspection. Neck supple. FROM. No adenopathy. Thyroid Normal. No meningeal signs. No neck mass noted. CVS: Normal heart rate and rhythm. Heart sound normal. No murmurs noted. Pulses normal throughout. Respiratory: No respiratory distress. Painless inspiration. Breath sounds normal. No wheezes/rales/rhonchi noted. Chest nontender. No accessory muscle usage noted or decreased air movement noted. Abdomen: Soft and nontender. Bowel sounds normal in all 4 quadrants. No distention noted. No organomegaly noted. No visible injury noted. Back: No CVA tenderness. Full range of motion noted. Skin: Skin warm and dry. Normal skin color. Normal skin turgor. No rashes/lesions/lacerations noted. Extremities: Superficial abrasion to the left knee no active bleeding, no deformity, left knee with full range of motion, neurovascularly intact. Left hand/left wrist: Small abrasion on the ulnar aspect of left palm with no deformity, neurovascular intact, no active bleeding. Neuro: Oriented X 3. Cranial nerve exam: II-XII are grossly intact No motor deficit. No sensory deficit. Reflexes normal. Course Course Course Narrative: RME; 32 female presents to the ED for dizziness and then fall onto left knee. Patient denies hitting head or loss of consciousness. Physical exam positive for left wrist abrasion tenderness and left knee tenderness on palpation. Head exam negative for signs of trauma. Reevaluation(s) Reevaluation #1: 74-year-old female history is consistent with mechanical fall no obvious injuries, no concern of cardiac event with unchanged EKG and negative troponin with no chest pain, no neurological deficit. X-ray of left knee left hand/wrist are unremarkable for or fracture. Of note patient is complaining of swelling of the right side of her neck for the past 2 weeks breathing, no difficulty swallowing, no fever, no chills, no loss of weight, no voice change, patient was instructed to follow-up with her primary doctor especially if any increase in size but it is likely to be enlarged lymph node. Time: 21:52 Medical Decision Making Differential Diagnosis Differential Diagnoses: The differential diagnosis associated with the presentation includes (Mechanical fall, syncope, ACS, electrolyte derangement, severe anemia.) Admission/Observation Consideration of admission/observation: Escalation of care including admission/observation considered Lab Data MDM Lab Attestation statement: I reviewed the patient's lab results. 07/30/24 17:11 07/30/24 17:11 Labs: Lab Results 07/30/24 07/30/24 07/30/24 Range/Units 15:55 17:11 17:11 WBC 10.0 (4.8-10.8) X10*3/uL RBC 4.95 (4.20-5.50) X10*6/uL Hgb 14.7 (12.0-16.0) g/dl Hct 43.7 (37.0-47.0) % MCV 88.3 (80.0-98.0) fL MCH 29.7 (27.0-33.0) pg MCHC 33.6 (31.0-35.0) g/dl RDW 12.9 (11.0-16.0) % Plt Count 242 (160-400) X10*3/uL MPV 10.9 (9.4-12.3) fL Immature Gran % (Auto) 0.5 H (0.0-0.4) % Neut % (Auto) 64.9 (45-73) % Lymph % (Auto) 25.1 (20-40) % [place] % (Auto) 6.9 (2-11) % Eos % (Auto) 1.6 (0-4) % Baso % (Auto) 1.0 (0-2) % Lymph # (Auto) 2.5 (1.2-4.9) X10*3/uL [place] # (Auto) 0.7 (0.1-1.2) X10*3/uL Eos # (Auto) 0.2 (0.0-0.4) X10*3/uL Baso # (Auto) 0.1 (0.0-0.2) X10*3/uL Abs Immat Gran (auto) 0.05 H (0.00-0.03) X10*3/uL Absolute Neuts (auto) 6.5 (2.0-8.3) x10*3/uL Absolute Nucleated RBC 0.000 (0.0-0.012) X10*3/uL Nucleated RBC % (auto) 0.0 (0.0-0.2) /100WBC PT 10.7 L (10.9-12.4) SEC INR 0.9 (0.9-1.1) APTT 31.3 (26.0-36.8) SEC Sodium 140 (135-145) mmol/L Potassium 4.3 (3.3-5.1) mmol/L Chloride 107 (96-108) mmol/L Carbon Dioxide 24 (22-29) mmol/L Anion Gap 13 (12-20) BUN 17 H (9-16) mg/dL Creatinine 1.05 (0.5-1.4) mg/dL Estim Creat Clear Calc 40.4 Estimated GFR 52 POC Glucose 276 H (60-115) mg/dL Random Glucose 271 H (60-115) mg/dL Calcium 9.2 (8.4-10.2) mg/dL Total Bilirubin 0.3 (0.0-1.0) mg/dL AST 13 (5-31) U/L ALT 9 (0-31) U/L Alkaline Phosphatase 103 (39-117) U/L Troponin I High Sens < 2.7 (<3.5-17.0) ng/L Total Protein 6.8 (6.5-8.0) g/dL Albumin 3.9 (3.5-5.0) g/dL Ethyl Alcohol < 10 Cancelled mg/dL Independent Interpretation I performed an independent interpretation of an: EKG (Unchanged from previous EKG.) and Plain X-Ray (Left/left hand/wrist x-ray, no acute fracture or dislocation.) Radiology Impression Discussion of test interpretation with radiology: I have reviewed the radiologist's reading. Discharge Plan Discharge Clinical Impression: Accident due to mechanical fall without injury, Contusion of knee, left, Contusion of hand, left Patient Disposition: Home, Self-Care Instructions: Fall Prevention for Older Adults (ED), Contusion in Adults (ED) Prescriptions: No Action cholecalciferol (vitamin D3) [Vitamin D3] 50 mcg (2,000 unit) capsule 50 mcg PO DAILY Qty: 30 11RF insulin syringe-needle U-100 [BD Insulin Syringe Ultra-Fine] 0.5 mL 31 gauge x 5/16 syringe See Rx Instructions .ROUTE DAILY Qty: 30 6RF Rx Instructions: 1 syringe daily; glipizide 5 mg tablet 5 mg PO DAILY Qty: 90 0RF lisinopril 2.5 mg tablet 2.5 mg PO DAILY Qty: 90 0RF Lantus U-100 Insulin 100 unit/mL solution 20 unit subcut BEDTIME Qty: 30 1RF simvastatin 20 mg tablet PO omeprazole 20 mg capsule,delayed release(DR/EC) PO levothyroxine 25 mcg tablet 25 mcg PO DAILY diclofenac potassium 50 mg tablet 50 mg PO DAILY Qty: 14 0RF meclizine 12.5 mg tablet 12.5 mg PO BID PRN (Reason: dizziness) Qty: 14 0RF Jardiance 10 mg tablet 2.5 mg PO DAILY Rybelsus 14 mg tablet 14 mg PO QAM Interventions: ED Discharge Assessment Last Done: 07/30/24 22:18 Discharge Date/Time: 07/30/24 22:22 Print Language: Luxembourger
[2024-07-30 17:17] LABS: MANUAL DIFF FLAG NO
[2024-07-30 17:26] LABS: Basophils Absolute Auto 0.1 X10*3/uL (0.0-0.2); Eosinophils Absolute Auto 0.2 X10*3/uL (0.0-0.4); Eosinophils Percent Auto 1.6 % (0-4); Hematocrit 43.7 % (37.0-47.0); Hemoglobin 14.7 g/dl (12.0-16.0); Imm Gran Abs Auto 0.05 X10*3/uL (0.00-0.03); Imm Gran Pct Auto 0.5 % (0.0-0.4); Lymphocytes Absolute Auto 2.5 X10*3/uL (1.2-4.9); Lymphocytes Percent Auto 25.1 % (20-40); Mean Corpuscular HGB Conc 33.6 g/dl (31.0-35.0); Mean Corpuscular Hemoglobin 29.7 pg (27.0-33.0); Mean Corpuscular Volume 88.3 fL (80.0-98.0); Mean Platelet Volume 10.9 fL (9.4-12.3); Monocytes Absolute Auto 0.7 X10*3/uL (0.1-1.2); Monocytes Percent Auto 6.9 % (2-11); Neutrophils Absolute Auto 6.5 x10*3/uL (2.0-8.3); Neutrophils Percent Auto 64.9 % (45-73); Platelet Count 242 X10*3/uL (160-400); Red Blood Count 4.95 X10*6/uL (4.20-5.50); Red Cell Distribution Width 12.9 % (11.0-16.0)
[2024-07-30 17:36] LABS: Alanine Aminotransferase 9 U/L (0-31); Albumin Level 3.9 g/dL (3.5-5.0); Alkaline Phosphatase 103 U/L (39-117); Anion Gap 13 (12-20); Aspartate Amino Transferase 13 U/L (5-31); Bilirubin Total 0.3 mg/dL (0.0-1.0); Blood Urea Nitrogen 17 mg/dL (9-16); Calcium 9.2 mg/dL (8.4-10.2); Carbon Dioxide 24 mmol/L (22-29); Chloride 107 mmol/L (96-108); Creatinine Clr Calc Pharmacy 40.4; Estimated Glomerular Filt Rate 52; Ethanol < 10 mg/dL; Glucose Random 271 mg/dL (60-115); Potassium 4.3 mmol/L (3.3-5.1); Sodium 140 mmol/L (135-145); Total Protein 6.8 g/dL (6.5-8.0)
[2024-07-30 17:37] LABS: INTERNATIONAL NORM RATIO 0.9 (0.9-1.1); Prothrombin Time 10.7 SEC (10.9-12.4)
[2024-07-30 17:39] LABS: Partial Thromboplastin Time 31.3 SEC (26.0-36.8)
[2024-07-30 17:44] LABS: Troponin-I High Sensitivity < 2.7 ng/L (<3.5-17.0)
[2024-07-30 21:23] VITALS: BP 143/71; PULSE 66; RESP 17; TEMP 36.8; O2SAT 96
[2024-07-30 22:18] VITALS: BP 144/70; PULSE 69; RESP 13; TEMP 36.9; O2SAT 96
== END 2024-07-30 22:22 | disposition home or self-care (01) ==
PROVIDERS: Physician Assistant; Emergency Provider Emergency Medicine
DX: S80.02XA Contusion of left knee, initial encounter (principal); S60.222A Contusion of left hand, initial encounter; W18.30XA Fall on same level, unspecified, initial encounter; Y93.9 Activity, unspecified; Y92.9 Unspecified place or not applicable; Y99.9 Unspecified external cause status; R42 Dizziness and giddiness; Z79.899 Other long term (current) drug therapy; E11.9 Type 2 diabetes mellitus without complications; M25.562 Pain in left knee
CPT/HCPCS: 36415; 73110; 73130; 73564; 80053; 80307; 82947; 84484; 85025; 85610; 85730; 93005; 99284; 99285

== ENCOUNTER → 2024-07-30 15:53 | Outpatient (BNV) | payer MEDICARE, MEDICAID, SELFPAY | PROVIDERS: Emergency Provider Emergency Medicine; Visit Provider Internal Medicine Cardiovascular Disease | DX: I44.4 Left anterior fascicular block (principal); R94.31 Abnormal electrocardiogram [ECG] [EKG] | CPT/HCPCS: 93010 ==

== ENCOUNTER 2024-10-08 10:37 | Outpatient (AMB) | payer MEDICARE, MEDICAID, SELFPAY ==
--- NOTE | 2024-10-08 11:48 | MHC.OFFWIV ---
Intake Vital Signs 10/08/24 11:49 Height 4 ft 10 in Weight 156 lb BMI 32.6 BP 120/80 Blood Pressure Location Rt brachial Position Sitting Pulse 80 Pulse Source Pulse Oximeter Pulse Oximetry (%) 95 Oxygen Delivery Method Room Air Intake Visit Reasons: EP dizzie spells Intake Note: Pt is here today for a walk in visit. Pt c/o dizzy spells since Tuesday. Patient Tobacco Use Status: Former Tobacco user Allergies pioglitazone [From ACTOS] Allergy (Unknown, Verified 10/08/24 11:52) SWELLING , diarrhea, feet swell metformin Adverse Reaction (Unknown, Verified 10/08/24 11:52) swelling in feet, diarrhea, diarrhea HPI HPI Comments History of Present Illness Details Presents with her sister for dizzy spells She said ongoing intermittent since Tuesday She admits to having them in past; has mentioned to lydia BAUTISTA but no work up Ongoing x a few months She said unsure if getting worse Dizzy spells last a few minutes Occurs randomly She said room spinning sensation She said sugars are good; she is a diabetic No HT or LOC or syncope No nausea or vomiting associated No vision changes with dizziness No weakness or chest pain associared with the dizziness She said nothing makes it better aside from laying down and drinking a lot of water Last dizzy spell was this am She now uses cane to help with ambulation; ongoing since Thanksgiving Normally she can walk independantly She does not drive; never drove , sister is her proxy She also noticed swollen lymph nodes near R tonsillar region that she has seen since July She said unchanged in size. They are non-tender This am, she palpated on in back of neck as well; near posterior cervical region [facility] Medical History Diabetes mellitus Surgical History History of open reduction and internal fixation (ORIF) procedure History of eye surgery History of laparoscopic cholecystectomy History of cataract surgery Family History Father Emphysema lung Mother Diabetes Sister Diabetes Son Diabetes Social History Alcohol intake: never Patient Tobacco Use Status: Former Tobacco user Review of Systems Const Denies chills, Denies fever(s), Reports frequent falls (last fall was near july) and Denies weight loss Eyes Denies blurry vision and Denies change in vision ENT Reports dizziness, Denies otalgia, Reports nasal congestion (occasional but no recent illness) and Denies sore throat Card Denies chest pain, Denies syncope and Denies dyspnea Resp Denies cough and Denies dyspnea GI Denies abdominal pain, Denies nausea and Denies vomiting Musc Denies myalgias Skin/Breast Reports lesions (mass R side neck x 2), Denies erythema, Denies skin ulcer and Denies wounds Neuro Denies confusion, Reports dizziness, Denies syncope and Reports frequent falls (last fall was near july) Psych Denies confusion Physical Exam Vital Signs: Last Vital Signs Pulse 80 10/08/24 11:49 BP 120/80 10/08/24 11:49 Pulse Ox 95 10/08/24 11:49 Oxygen Delivery Method Room Air 10/08/24 11:49 BMI result Body Mass Index 32.6 General: Non-toxic, NAD. Speaking full sentences. Skin: Warm dry throughout Eye: EOMI Neck: + palpable LN x 2 on R side of neck. Both singular, well demarcated, non-tender, non-mobile. One locared R tonsillar region and the other R posterior cervical mid chain. HENT: Airway patent. Uvula midline. No pharyngeal erythema or edema. No [employer]. Mucosa slightly dry Bilateral canals clear. TM non-erythematous, non-bulging. No TM perforation or hemotympanum noted. Respiratory: CTA bilaterally. No wheezes, rales or rhonchi Cardiac: RRR. No murmur MSK: Full ROM extremities. Neurology: Alert. CN 2-12 grossly intact. Negative pronator drift. 5/5 cook mess strength. Finger to nose tracing equal. No aphasia or facial droop. Gait without abnormality with cane. Psych: Good mood and affect Const General: No confusion Orientation/consciousness: No confusion Neuro General: No confusion Assessment & Plan Assessment & Plan (1) Dizziness: Code(s): R42 - Dizziness and giddiness Plan: Patient seen and evaluated. She has had ongoing dizzy spells x 2 months without workup + LN enlargement Discussed need for labs and head imaging. Will send to [place] [facility] for evaluation Pt and sister agree and sister is driving. Expect called to [place] [facility] Patient gave verbal understanding and had no additional questions or concerns at time of discharge All questions answered Coding Level of Care Code Est Pt Level 3 (54561) Diagnoses Dizziness R42
[2024-10-08 11:49] VITALS: BP 120/80; PULSE 80; O2SAT 95; BMI 32.6
== END 2024-10-08 13:23 | disposition home or self-care (01) ==
PROVIDERS: Visit Provider Physician Assistant
DX: R42 Dizziness and giddiness (principal)

== ENCOUNTER 2024-10-08 12:46 | Emergency (ER) | payer MEDICARE, MEDICAID, SELFPAY ==
--- NOTE | 2024-10-08 14:05 | ED.GENADULT ---
HPI - General Adult General Chief complaint: Dizziness Stated complaint: fall head inj sent in by urgent care Related Data Home Medications ?Medication ?Instructions ?Recorded ?Confirmed omeprazole 20 mg capsule,delayed mg PO 01/06/21 release simvastatin 20 mg tablet mg PO 01/06/21 semaglutide 14 mg tablet (Rybelsus) 14 mg PO QAM 10/06/23 levothyroxine 25 mcg tablet 25 mcg PO DAILY 03/05/24 empagliflozin 10 mg tablet 2.5 mg PO DAILY 05/09/24 (Jardiance) Previous Rx's ?Medication ?Instructions ?Recorded cholecalciferol (vitamin D3) 50 50 mcg PO DAILY #30 caps 07/10/20 mcg (2,000 unit) capsule (Vitamin D3) insulin syringe-needle U-100 0.5 See Rx Instructions .Route DAILY 11/19/20 mL 31 gauge x 5/16 (BD Insulin insulin dependent diabetic #30 ea Syringe Ultra-Fine) glipizide 5 mg tablet 5 mg PO DAILY #90 tabs 01/15/21 lisinopril 2.5 mg tablet 2.5 mg PO DAILY #90 tabs 01/28/21 insulin glargine 100 unit/mL 20 unit (0.2 mL) subcut BEDTIME 03/06/21 subcutaneous solution (Lantus #30 mL U-100 Insulin) diclofenac potassium 50 mg tablet 50 mg PO DAILY #14 tabs 03/05/24 meclizine 12.5 mg tablet 12.5 mg PO BID PRN dizziness #14 03/05/24 tabs Allergies Allergy/AdvReac Type Severity Reaction Status Date / Time pioglitazone [From ACTOS] Allergy Unknown SWELLING , Verified 10/08/24 14:08 diarrhea, feet swell metformin AdvReac Unknown swelling Verified 10/08/24 14:08 in feet, diarrhea, diarrhea PMFSH Past Medical History Medical History Diabetes mellitus Surgical History History of open reduction and internal fixation (ORIF) procedure History of eye surgery History of laparoscopic cholecystectomy History of cataract surgery Family History Family History Father Emphysema lung Mother Diabetes Sister Diabetes Son Diabetes Social History Social History Alcohol intake: never Patient Tobacco Use Status: Former Tobacco user Advance Directives: No Do you have a plan to hurt others: No Plan Physical Exam ED Vital Signs: BMI result Body Mass Index 31.5 Course Course Course Narrative: This is a rapid medical exam performed by Yessenia Boucher NP: Additional HPI, ROS, PE not included below will be deferred to primary provider. Patient is a 74-year-old female with history of vertigo, DM presenting to the ED with complaint of dizziness for the past two months, recently since Tuesday. Referred from urgent care due to cervical lymphadenopathy. Worse with standing. Plan: labs, viral serology Medical Decision Making Lab Data 10/08/24 14:26 10/08/24 14:26 Labs: Lab Results 10/08/24 Range/Units 14:26 WBC 10.1 (4.8-10.8) X10*3/uL RBC 5.29 (4.20-5.50) X10*6/uL Hgb 15.1 (12.0-16.0) g/dl Hct 47.0 (37.0-47.0) % MCV 88.8 (80.0-98.0) fL MCH 28.5 (27.0-33.0) pg MCHC 32.1 (31.0-35.0) g/dl RDW 13.0 (11.0-16.0) % Plt Count 244 (160-400) X10*3/uL MPV 11.0 (9.4-12.3) fL Immature Gran % (Auto) 0.6 H (0.0-0.4) % Neut % (Auto) 63.2 (45-73) % Lymph % (Auto) 26.9 (20-40) % [place] % (Auto) 6.3 (2-11) % Eos % (Auto) 1.8 (0-4) % Baso % (Auto) 1.2 (0-2) % Lymph # (Auto) 2.7 (1.2-4.9) X10*3/uL [place] # (Auto) 0.6 (0.1-1.2) X10*3/uL Eos # (Auto) 0.2 (0.0-0.4) X10*3/uL Baso # (Auto) 0.1 (0.0-0.2) X10*3/uL Abs Immat Gran (auto) 0.06 H (0.00-0.03) X10*3/uL Absolute Neuts (auto) 6.4 (2.0-8.3) x10*3/uL Absolute Nucleated RBC 0.000 (0.0-0.012) X10*3/uL Nucleated RBC % (auto) 0.0 (0.0-0.2) /100WBC PT 10.7 L (10.9-12.4) SEC INR 0.9 (0.9-1.1) Sodium 141 (135-145) mmol/L Potassium 4.0 (3.3-5.1) mmol/L Chloride 110 H (96-108) mmol/L Carbon Dioxide 25 (22-29) mmol/L Anion Gap 10 L (12-20) BUN 16 (9-16) mg/dL Creatinine 0.86 (0.5-1.4) mg/dL Estim Creat Clear Calc 50.6 Estimated GFR > 60 Random Glucose 141 H (60-115) mg/dL Calcium 9.4 (8.4-10.2) mg/dL Magnesium 2.2 (1.6-2.6) mg/dL Total Bilirubin 0.4 (0.0-1.0) mg/dL AST 19 (5-31) U/L ALT 12 (0-31) U/L Alkaline Phosphatase 100 (39-117) U/L Troponin I High Sens < 2.7 (<3.5-17.0) ng/L Total Protein 7.1 (6.5-8.0) g/dL Albumin 4.1 (3.5-5.0) g/dL Influenza Type A (PCR) NEGATIVE (Negative) Influenza Type B (PCR) NEGATIVE (Negative) RSV RNA Qual (PCR) NEGATIVE (Negative) SARS-CoV-2 RNA (RT-PCR) NEGATIVE (Negative) Discharge Plan Discharge Clinical Impression: Dizziness Patient Disposition: Left W/O Completing Treatment Prescriptions: No Action cholecalciferol (vitamin D3) [Vitamin D3] 50 mcg (2,000 unit) capsule 50 mcg PO DAILY Qty: 30 11RF insulin syringe-needle U-100 [BD Insulin Syringe Ultra-Fine] 0.5 mL 31 gauge x 5/16 syringe See Rx Instructions .ROUTE DAILY Qty: 30 6RF Rx Instructions: 1 syringe daily; glipizide 5 mg tablet 5 mg PO DAILY Qty: 90 0RF lisinopril 2.5 mg tablet 2.5 mg PO DAILY Qty: 90 0RF Lantus U-100 Insulin 100 unit/mL solution 20 unit subcut BEDTIME Qty: 30 1RF simvastatin 20 mg tablet PO omeprazole 20 mg capsule,delayed release(DR/EC) PO levothyroxine 25 mcg tablet 25 mcg PO DAILY diclofenac potassium 50 mg tablet 50 mg PO DAILY Qty: 14 0RF meclizine 12.5 mg tablet 12.5 mg PO BID PRN (Reason: dizziness) Qty: 14 0RF Jardiance 10 mg tablet 2.5 mg PO DAILY Rybelsus 14 mg tablet 14 mg PO QAM Discharge Date/Time: 10/08/24 20:30
[2024-10-08 14:06] VITALS: BP 124/69; PULSE 78; RESP 16; TEMP 36.4; O2SAT 94; BMI 31.5
--- NOTE | 2024-10-08 14:08 | ECG_ITS ---
Test Reason : DIZZINES Blood Pressure : */* mmHG Vent. Rate : 73 BPM Atrial Rate : 73 BPM P-R Int : 150 ms QRS Dur : 90 ms QT Int : 390 ms P-R-T Axes : 22 -51 22 degrees QTcB Int : 429 ms Normal sinus rhythm Left anterior fascicular block Abnormal ECG When compared with ECG of 30-Jul-2024 16:59, No significant change was found Referred By: Soledad Boucher Electronically Signed By: Chester Barba
[2024-10-08 14:31] LABS: MANUAL DIFF FLAG NO
[2024-10-08 14:37] LABS: Basophils Absolute Auto 0.1 X10*3/uL (0.0-0.2); Basophils Percent Auto 1.2 % (0-2); Eosinophils Absolute Auto 0.2 X10*3/uL (0.0-0.4); Eosinophils Percent Auto 1.8 % (0-4); Hemoglobin 15.1 g/dl (12.0-16.0); INTERNATIONAL NORM RATIO 0.9 (0.9-1.1); Imm Gran Abs Auto 0.06 X10*3/uL (0.00-0.03); Imm Gran Pct Auto 0.6 % (0.0-0.4); Lymphocytes Absolute Auto 2.7 X10*3/uL (1.2-4.9); Lymphocytes Percent Auto 26.9 % (20-40); Mean Corpuscular HGB Conc 32.1 g/dl (31.0-35.0); Mean Corpuscular Hemoglobin 28.5 pg (27.0-33.0); Mean Corpuscular Volume 88.8 fL (80.0-98.0); Monocytes Absolute Auto 0.6 X10*3/uL (0.1-1.2); Monocytes Percent Auto 6.3 % (2-11); Neutrophils Absolute Auto 6.4 x10*3/uL (2.0-8.3); Neutrophils Percent Auto 63.2 % (45-73); Platelet Count 244 X10*3/uL (160-400); Prothrombin Time 10.7 SEC (10.9-12.4); Red Blood Count 5.29 X10*6/uL (4.20-5.50); White Blood Count 10.1 X10*3/uL (4.8-10.8)
[2024-10-08 14:56] LABS: Alanine Aminotransferase 12 U/L (0-31); Albumin Level 4.1 g/dL (3.5-5.0); Alkaline Phosphatase 100 U/L (39-117); Anion Gap 10 (12-20); Aspartate Amino Transferase 19 U/L (5-31); Blood Urea Nitrogen 16 mg/dL (9-16); Calcium 9.4 mg/dL (8.4-10.2); Carbon Dioxide 25 mmol/L (22-29); Chloride 110 mmol/L (96-108); Creatinine Clr Calc Pharmacy 50.6; Estimated Glomerular Filt Rate > 60; Glucose Random 141 mg/dL (60-115); Magnesium 2.2 mg/dL (1.6-2.6); Sodium 141 mmol/L (135-145); Total Protein 7.1 g/dL (6.5-8.0)
[2024-10-08 14:57] LABS: Troponin-I High Sensitivity < 2.7 ng/L (<3.5-17.0)
[2024-10-08 15:14] LABS: Influenza A PCR NEGATIVE (Negative); Influenza B PCR NEGATIVE (Negative); Resp Syncy Virus RNA Qual PCR NEGATIVE (Negative); SARS COV2 PCR INHOUSE NEGATIVE (Negative)
[2024-10-08 15:49] LABS: Bilirubin Total 0.4 mg/dL (0.0-1.0)
== END 2024-10-08 20:30 | disposition left against medical advice (07) ==
PROVIDERS: Registered Nurse Emergency; Emergency Provider Emergency Medicine; PCP Internal Medicine
DX: R42 Dizziness and giddiness (principal); R59.1 Generalized enlarged lymph nodes; R79.1 Abnormal coagulation profile; E11.9 Type 2 diabetes mellitus without complications; Z03.818 Encounter for observation for suspected exposure to other biological agents ruled out; Z87.891 Personal history of nicotine dependence; Z79.4 Long term (current) use of insulin
CPT/HCPCS: 0241U; 80053; 83735; 84484; 85025; 85610; 93005; 99212; 99283

== ENCOUNTER → 2024-10-08 14:08 | Outpatient (BNV) | payer MEDICARE, MEDICAID, SELFPAY | PROVIDERS: Emergency Provider Emergency Medicine; PCP Internal Medicine; Visit Provider Internal Medicine Cardiovascular Disease | DX: R94.31 Abnormal electrocardiogram [ECG] [EKG] (principal) | CPT/HCPCS: 93010 ==

== ENCOUNTER 2025-05-22 08:30 | Outpatient (AMB) | payer MEDICARE, MEDICAID, SELFPAY ==
[2025-05-22 08:44] VITALS: BP 148/56; PULSE 74; TEMP 36.6; O2SAT 97; BMI 32.7
--- NOTE | 2025-05-22 08:44 | AM.OFFWIN_ITS ---
Intake Vital Signs 05/22/25 08:44 Height 4 ft 11 in Weight 162 lb BMI 32.7 BP 148/56 H Blood Pressure Location Lt brachial Position Sitting Pulse 74 Pulse Source Pulse Oximeter Temp 97.9 F Temp Source Oral Pulse Oximetry (%) 97 Oxygen Delivery Method Room Air Intake Visit Reasons: EP Runny nose, constipation Intake Note: pt presents with concern for constipation x2 days, feels a bubble in mid abdomen and back pain. Scheduled for surgery 05/29 for right carotid artery Patient Tobacco Use Status: Former Tobacco user Allergies pioglitazone (From ACTOS) Allergy (Unknown, Verified 05/22/25 08:46) SWELLING , diarrhea, feet swell metformin Adverse Reaction (Unknown, Verified 05/22/25 08:46) swelling in feet, diarrhea, diarrhea Do you need a note to return to daycare/school/sports/work: No HPI HPI Comments History of Present Illness Details History of Present Illness - The patient is a 75-year-old female pr esenting with constipation. - She has not had a bowel movement since Tuesday, although she typically has two per day. - She took a laxative on Tuesday, which r esulted in frequent bowel movements that day. - She has not had a BM since Tuesday. - She has been bloated and has no pain i n the abdomen. - She denies black stools, diarrhea, and hemorrhoids, but reports a sensation of fullness and a bubble in her abdomen. - There are no new medications or dietar y changes, and she consumes about a gallon of water daily. - She denies CP, SOB, nausea, or vomitin g. Physical Exam General: Cooperative, healthy appearing, comfortable, no acute distress and well developed Orientation: Patient oriented x3 Respiratory: Normal respiratory effort and able to speak in complete sentences. Clear to auscultation bilaterally Cardiovascular: Regular rate and rhythm. Normal S1 and S2 GI: Hypoactive bowel sounds noted. Soft, non-tender, non-distended. TTP of the LUQ. No guarding or rebound tenderness noted. Skin: No rashes or lesions noted Patient was informed and verbally consented to the use of an ambient scribe for clinic note documentation during this visit. [facility] Medical History Diabetes mellitus Surgical History History of open reduction and internal fixation (ORIF) procedure History of eye surgery History of laparoscopic cholecystectomy History of cataract surgery Family History Father Emphysema lung Mother Diabetes Sister Diabetes Son Diabetes Social History Alcohol intake: never Patient Tobacco Use Status: Former Tobacco user Review of Systems Const All systems reviewed & are unremarkable except as noted in HPI and below Physical Exam Vital Signs: Last Vital Signs Temp 97.9 F 05/22/25 08:44 Pulse 74 05/22/25 08:44 BP 148/56 H 05/22/25 08:44 Pulse Ox 97 05/22/25 08:44 Oxygen Delivery Method Room Air 05/22/25 08:44 BMI result Body Mass Index 32.7 Assessment & Plan Assessment & Plan (1) Constipation: Code(s): K59.00 - Constipation, unspecified Qualifiers: Constipation type: unspecified constipation type Qualified Code(s): K59.00 - Constipation, unspecified Plan Most likely constipation plan - Prescribed MiraLax and Colace to manage constipation. - Recommended increasing dietary fiber and maintaining adequate hydration. - Advised to seek medical attention if symptoms persist without improvement. Medications: New sennosides-docusate sodium 8.6-50 mg (Colace 2-In-1) 1 tab-cap PO BEDTIME 30 tabs 0RF polyethylene glycol 3350 (Miralax) 17 grams PO DAILY 119 grams 0RF Coding Level of Care Code Est Pt Level 3 (94311) Diagnoses Constipation, unspecified constipation type K59.00 Constipation type: unspecified constipation type
--- OUTSIDE RECORDS SUMMARY | 2025-05-22 08:53 | XMS_ITS | Clinical Summary ---
Author Organization [facility] Address [address] [place] [id number] Phone Care Team Providers Care Surgical Consultant Name Role Phone Pcp, Unknown Primary Care Provider Unavailabl e Allergies Active Allergy Reactions Criticality Noted Date Comments Pioglitazone 04/13/2025 Medications omeprazole (PRILOSEC) 20 MG capsule Take 1 capsule (20 mg total) by mouth daily. 30 capsule 04/13/2025 05/13/20 25 aluminum-magnes ium hydroxide-simet hicone (MAALOX) 200-200-20 mg/5 mL Susp Take 30 mL by mouth every 6 (six) hours as needed (abdominal pain). 354 mL 04/13/2025 04/27/20 25 Encounters Date Type Department Care Team Description 04/13/2025 3:35 PM EDT - 04/13/2025 5:39 PM EDT Emergency [facility] [address] [place] [address] Discharge Disposition: Home or Self Care from Last 3 Months Social History Tobacco Use Types Packs/Day Years Used Date Smoking Tobacco: Never Assessed Education Answer Date Recorded Are you interested in more education? Not on teddy e 04/13/2025 Are you concerned about learning? Not on file 04/13/2025 No 04/13/2025 No 04/13/2025 Digital Access Answer Date Recorded No 04/13/2025 No 04/13/2025 Reliable internet access at home? Not on file 04/13/2025 Device with a working camera? Not on file Intimate Partner Violence Answer Date R ecorded Are you denied basic needs s uch as food, clothing, or medical care? No 04/13/2025 In the past 12 months have y ou been in a relationship with a person who hurts, threatens, or tries to control you? No 04/13/2025 Are you denied basic needs s uch as food, clothing, or medical care? No 04/13/2025 In the past 12 months have y ou been in a relationship with a person who hurts, threatens, or tries to control you? No 04/13/2025 Comments Unknown Sex and Gender Information Value Date Recorded Sex Assigned at Female 04/13/2025 1:29 PM EDT Legal Sex Female 1:23 PM EDT Gender Identity Female 04/13/2025 1:29 PM EDT Sexual Orientation Choose not to disclose 2024 5:05 PM EDT Last Filed Vital Signs Vital Sign Reading Time Taken Comments Blood Pressure 136/77 04/13/2025 5:36 PM EDT Pulse 70 04/13/2025 5:36 PM EDT Temperature 36.1 C (97 F) 04/13/2025 5:36 PM EDT Respiratory Rate 16 04/13/2025 5:36 PM EDT Oxygen Saturation 95% 04/13/2025 5:36 PM EDT Inhaled Oxygen Concentration - - Weight 68 kg (150 lb) 04/13/2025 1:28 PM EDT Height 152.4 cm (5') 04/13/2025 1:28 PM EDT Body Mass Index 29.29 04/13/2025 1:28 PM EDT Plan of Treatment Not on file Medical Devices Not on file Procedures Procedure Name Priority Date/Time Associated Diagnosis Comments LIPASE STAT 04/13/2025 1:58 PM EDT LFTS (HEPATIC PANEL) STAT 04/13/2025 1:58 PM EDT BASIC METABOLIC PANEL STAT 04/13/2025 1:58 PM EDT CBC AND DIFFERENTIAL STAT 04/13/2025 1:58 PM EDT URINALYSIS W/REFLEX URINE CULTURE STAT 04/13/2025 1:45 PM EDT ECG 12-LEAD STAT 04/13/2025 1:36 PM EDT from Last 3 Months Results * LFTs (hepatic panel) (04/13/2025 1:58 PM EDT) ALKALINE PHOSPHATASE 110 39 - 117 U/L [facility] TOTAL BILIRUBIN 0.3 0.0 - 1.2 mg/dL [facility] DIRECT BILIRUBIN 0.1 0.0 - 0.2 mg/dL [facility] Bilirubin (Indirect) NOT CALCULATED 0 - 1.5 mg/dL [facility] AST 11 0 - 37 U/L [facility] ALT 8 0 - 40 U/L [facility] TOTAL PROTEIN 6.9 6.5 - 8.0 g/dL [facility] ALBUMIN 4.1 3.9 - 4.8 g/dL [facility] GLOBULIN 2.8 1 - 4.8 g/dL [facility] A/G Ratio 1.46 1.00 - 4.80 RATIO [facility] Blood 04/13/2025 1:58 PM EDT 04/13/2025 2:07 PM EDT us Matthew Ugarte MD LAB BLOOD ORDERABLES Fin al Result Performing Organization Address City/State/[facility] Co de Phone Number [address] [address] * CBC and differential (04/13/2025 1:58 PM EDT) WBC 10.15 4.00 - 11.00 K/uL [facility] RBC 5.01 4.00 - 5.20 M/uL [facility] HGB 14.6 12.0 - 16.0 g/dL [facility] HCT 45.3 36.0 - 46.0 % [facility] PLT 255 150 - 450 K/uL [facility] MCV 90.4 80.0 - 100.0 fL [facility] MCH 29.1 27.0 - 31.0 pg [facility] MCHC 32.2 32.0 - 36.0 g/dL [facility] RDW 12.9 11.5 - 14.5 % [facility] MPV 11.2 8.4 - 12.0 fL [facility] NRBC 0.00 0.00 /100 WBCs [facility] ABSOLUTE NRBC 0.00 0.00 K/uL [facility] DIFF METHOD Auto [facility] NEUTS 62.4 48.0 - 76.0 % [facility] LYMPHS 27.2 18.0 - 41.0 % [facility] MONOS 6.5 4.0 - 11.0 % [facility] EOS 2.2 0.0 - 5.0 % [facility] BASOS 1.2 0.0 - 1.5 % [facility] Granulocytes, immature (%) 0.5 0.0 - 0.9 % [facility] ABSOLUTE NEUTS 6.34 1.92 - 7.60 K/uL [facility] ABSOLUTE LYMPHS 2.76 0.72 - 4.10 K/uL [facility] ABSOLUTE MONOS 0.66 0.16 - 1.10 K/uL [facility] ABSOLUTE EOS 0.22 0.00 - 0.50 K/uL [facility] ABSOLUTE BASOS 0.12 0.00 - 0.15 K/uL [facility] Granulocytes, immature 0.05 0.00 - 0.09 K/uL [facility] Blood 04/13/2025 1:58 PM EDT 04/13/2025 2:07 PM EDT us Matthew Ugarte MD LAB BLOOD ORDERABLES Fin al Result [address] [address] * Lipase (04/13/2025 1:58 PM EDT) LIPASE 47 16 - 63 U/L [facility] Blood 04/13/2025 1:58 PM EDT 04/13/2025 2:07 PM EDT us Matthew Ugarte MD LAB BLOOD ORDERABLES Fin al Result [address] [address] * (ABNORMAL) Basic metabolic panel (04/13/2025 1:58 PM EDT) SODIUM 141 133 - 146 mmol/L [facility] CHLORIDE 106 96 - 108 mmol/L [facility] POTASSIUM 4.0 3.3 - 5.1 mmol/L [facility] CO2 25 21 - 35 mmol/L [facility] BUN 17 6 - 19 mg/dL [facility] CREATININE 1.10 0.5 - 1.5 mg/dL [facility] GLUCOSE 299(H) 70 - 99 mg/dL [facility] CALCIUM 8.8 8.4 - 10.3 mg/dL [facility] EGFR 53(L) >59 mL/min/1.7 3m2 [facility] Comment:Estimated glomerular filtration rate calculated using the CKD-EPI refit equation. ANION GAP 14 10 - 20 mmol/L [facility] Blood 04/13/2025 1:58 PM EDT 04/13/2025 2:07 PM EDT us Matthew Ugarte MD LAB BLOOD ORDERABLES Fin al Result [address] [address] * (ABNORMAL) Urinalysis w/reflex Urine Culture (04/13/2025 1:45 PM EDT) COLOR Yellow Yellow [facility] CLARITY HAZY [facility] GLUCOSE 3+(A) Negative [facility] BILI Negative Negative [facility] KETONES Negative Negative [facility] SPECIFIC GRAVITY <1.005 1.005 - 1.030 [facility] BLOOD Negative Negative [facility] PH 5.5 5.0 - 8.0 [facility] Protein-UA Negative Negative [facility] NITRITE Negative Negative [facility] Leukocyte esterase, ur Negative Negative [facility] Urine (Urine) 04/13/2025 1:4 5 PM EDT 04/13/2025 1:51 PM EDT us Matthew Ugarte MD URINE ORDERABLES Final R esult Performing Organization Address City/[facility]/ZIP Co de Phone Number [facility] [address] [place] [address] * ECG 12-LEAD (04/13/2025 1:36 PM EDT) Ventricular Rate EKG/MIN 83 BPM [facility] Atrial Rate 83 BPM [facility] AR Interval 136 ms [facility] QRS Duration 88 ms [facility] QT Interval 394 ms [facility] QTC Interval 462 ms [facility] P [place] -17 degrees [facility] R Wave [place] -54 degrees [facility] T Wave [place] 26 degrees [facility] 04/13/2025 1:36 PM EDT 04/14/2025 9:53 AM EDT Narrative [facility] - 04/14/2025 9:53 AM EDT Sinus rhythm Left anterior fascicular block Abnormal ECG No previous ECGs available Confirmed by Armen MACIAS ([id number]) on 04/14/2025 9:53:53 AM us Matthew Ugarte MD ECG ORDERABLES Final Re sult Performing Organization Address City/[facility]/ZIP Co de Phone Number [facility] from Last 3 Months Insurance [facility] MEDIC[facility] PART A & B Care Teams Surgical Consultant Relationship Specialty Start Date End Date Pcp, Unknown PCP - General 04/13/25 Additional Source Comments The information contained in this document represents components of the legal health record. It is not the complete legal health record.[facility]
--- OUTSIDE RECORDS SUMMARY | 2025-05-22 08:53 | XMS_ITS | Patient Health Record ---
Author Organization [facility] Address [address] [place] [address] Care Team Providers Care Hand Decorator Name Role Phone Wes(INACTIVE)Sarahy Primary Care Pr ovider Unavailable Tim Marc Unavailable [phone] Sarahy Saenz MD Unavailable Unavailable Allergies Allergen (clinical drug ingredient) Drug/Non Drug Allergy documented on EMR Reaction Allergy Type Onset Date Status pioglitazone Actos Unknown Drug Allergy Acti ve Reason For Referral No Information Medications Medication SIG (Take, Route, Frequency, Duration) Notes Start Date End Date Status metFORMIN HCl 1000 MG TAKE 1 TABLET TWIC E A DAY WITH MEALS Oral for 30 Active Levothyroxine Sodium 25 MCG 1 tablet on an empty stomach in the morning Orally Once a day Active Simvastatin 20 MG TAKE 1 TABLET IN THE EVENING Oral for 30 Active Lantus 100 UNIT/ML INJECT 10 UNITS JOSE ELIAS Y Subcutaneous for 30 Active Omeprazole 20 MG 1 capsule Orally Onc e a day for 30 day(s) 10/12/2016 Active Immunizations Vaccine Route Administration Date Status Comme nts Influenza Unknown 05/27/2016 Administered Problems Problem Type SNOMED Code ICD Code Onset Dates Problem Status W/U Status Risk Notes Problem [id number] Encounter for screening for malignant neoplasm of colon (Z12.11) Active confirmed Problem Encounter for screening for malignant neoplasm of rectum (Z12.12) Active confirmed Problem [id number] Gastroesophageal reflux disease, esophagitis presence not specified (K21.9) Active confirmed Problem [id number] Abdominal pain, left upper quadrant (R10.12) Active confirmed Plan Of Treatment Future Test Test Name Order Date UPPER GI ENDOSCOPY 10/12/2016 COLONOSCOPY 10/12/2016 Insurance Providers Payer Name Payer Address Payer Phone Subscriber Number Group Number Insured Name Patient Relationship to Insured Coverage Start Date Coverage End Date [facility] [address] [address] [place], [place] [id number] WATSON REBOLLEDO Self - patient is the insured Medical (General) History Medical History History ICD Code IDDM Hyperlipidemia Denies [place],DM,CVA,renal disease Gallstone pancreatitis 2016--s/p CCY Hypothyroidism Surgical History Surgery Date(Month/Year) Cholecystectomy 2016 Cataracts, lens implant
--- OUTSIDE RECORDS SUMMARY | 2025-05-22 08:53 | XMS_ITS | Clinical Summary ---
Author Organization [address] Address [address] [place] [phone] Phone Care Team Providers Care Director Quality Systems Name Role Phone Malka Sheehan MD Primary Care Prov ider Allergies Active Allergy Reactions Criticality Noted Date Comments Pioglitazone Swelling 04/02/2021 Feet Medications lancets lancets Test blood sugar 1 time daily 4 Active blood-glucose calib. control (BLOOD-GLUCOSE CALIBRAT CONTROL [facility]) Use to calibrate each new bottle of test strips 1 Active blood-glucose meter kit 1 (one) time each day. 1 Active glucose blood test strip Use to check blood glucose twice a day 3 Active Autolet lancing device 1 (one) time each day. 4 Active cholecalciferol (VITAMIN D-3) 50 mcg (2,000 unit) tablet Take by mouth. Active nystatin (MYCOSTATIN) ointment Apply to groin rash 2-3 times a day for up to 2 weeks 3 Active lisinopriL (PRINIVIL,ZESTRIL) 2.5 mg tabletIndications: Preop cardiovascular exam,Type 2 diabetes mellitus with diabetic microalbuminuria, with long-term current use of insulin ([facility] V24, CMS/[facility] V28) Take 1 tablet (2.5 mg total) by mouth 1 (one) time each day. 90 each 3 5 11/29/19 26 Active insulin syringe-needle U-100 1 mL 31 gauge x 5/16 syringe Use to inject 1-4 times daily as directed. 100 each 11 5 11/29/19 26 Active levothyroxine (SYNTHROID, LEVOTHROID) 25 mcg tablet TAKE 1 TABLET BY MOUTH EVERY DAY 90 tablet 1 5 Active empagliflozin (Jardiance) 25 mg tablet Take 1 tablet (25 mg total) by mouth 1 (one) time each day. 90 tablet 2 5 Active simvastatin (ZOCOR) 20 mg tablet TAKE 1 TABLET BY MOUTH EVERYDAY AT BEDTIME 90 tablet 1 5 Active insulin glargine-yfgn (Semglee,insulin glargine-yfgn,) 100 unit/mL injection Inject 45 Units under the skin at bedtime. 50 mL 3 5 02/05/20 26 Active Active Problems Problem Noted Date Diagnosed Date Mass of right parotid gland 10/25/[address] of the head 10/25/2024 Overview (10/25/2024): Asymmetric enlargement of the left cavernous sinus. White matter abnormalities most likely due to chronic small vessel ischemia. 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 MRI examination of the head with intravenous contrast as well as MRA of the kenaitze of [place] is recommended for further assessment White matter abnormality on MRI of brain 025 Class 1 obesity due to exces s calories with serious comorbidity and body mass index (BMI) of 32.0 to 32.9 in adult 06/27/2024 Retained intrauterine contraceptive device (IUD) 11/03/2023 Pap smear of cervix with ASCUS, cannot exclude H GSIL 07/20/2023 Overview (06/27/2024): [place] with [facility] [place] paps [place] our records. Vitamin D deficiency 04/02/2021 Type 2 diabetes mellitus wit h cataract (CMS/HCC V24, CMS/HCC V28) 04/02/2021 Osteoporosis 04/02/2021 Type 2 diabetes mellitus wit h renal manifestations ([facility]/HCC V24, [facility] V28) 03/10/2021 Assessment & Plan (08/06/2024 2:27 PM EST): Poor control of diabetes. Patient will continue with yearly Podiatric and Ophthomologic evaluations.Will continue Angiotensin Converting Enzyme Inhibitor for renal protection. Will increase the dose of Lantus to 45 units at night, and increase Jardiance to 25 mg a day. We will check a hemoglobin A1c, before her next visit. Patient will follow up in 3 months, she is encouraged again to keep the upcoming appointment with endocrinology. Orders: Hemoglobin A1c; Future Hypothyroidism 03/10/2021 Assessment & Plan (08/06/2024 1:25 PM EST): Currently on 25 mcg of levothyroxine. TSH has been stable over the last years. Continue same dose. Hypertension 03/10/2021 Hypercholesterolemia 07/25/2006 Assessment & Plan (08/06/2024 2:27 PM EST): Given the patients cardiac risk profile, the patient requires an LDL cholesterol of less than 70. I have instructed the patient on the principles of a low cholesterol diet and the importance of regular exercise. We will check a cholesterol profile and liver function tests on this visit. Immunizations Name Administration Dates Next Due Hepatitis B (Yvivbhw-N-Lqizb , Recombivax HB-Adult) 19yo and older 11/12/2008,06/18/2008,05/15/2008 Influenza trivalent, 0.5mL ( Fluad) 65yo and older 08/06/2024 Influenza trivalent, 0.5mL ( Fluzone High-dose) 65yo and older 06/01/2023,07/27/2022,06/09/2020,07/03,06/29/2017 Influenza trivalent, with pr eservative (Fluzone; Afluria) 6mo and older 06/24/2016,07/17/2014,11/28/2012 Pneumococcal polysaccharide 23 valent (Pneumovax 23) 2yo and older 05/12/2016,05/20/2009 Td Tetanus diptheria (Tdvax) 7yo and older 05/22/2021 Tdap Tetanus diptheria acell ular pertussis (Boostrix; Adacel) 7yo and older 02/25/2011 Surgical History Surgery Date Site/Laterality Comments WRIST SURGERY PROCEDURE: HISTORICAL WRIST SURGERY CHOLECYSTECTOMY 04/2016 PROCEDURE: HISTORICAL CHOLECYSTECTOMY; COMMENT: lap wai CATARACT EXTRACTION 11/2016 Right PROCEDURE: HISTORICAL CATARACT REMOVAL Medical History Medical History Date Comments Vitamin D deficiency 04/02/2021 DX:Vitamin D deficiency Hypercholesterolemia 07/25/2006 DX:Hypercho lesterolemia Hypertension 03/10/2021 DX:Hypertension Hypothyroidism 03/10/2021 DX:Hypothyroidis m S/P ORIF (open reduction int ernal fixation) fracture 03/10/2021 DX:S/P ORIF (open reduction internal fixation) fracture; COMMENT: Right wrist History of cataract 04/02/2021 DX:History o f cataract Type 2 diabetes mellitus wit h cataract ([facility] V24, [facility] V28) 04/02/2021 DX:Type 2 diabetes mellitus with cataract (HCC) CKD (chronic kidney disease) stage 3, GFR 30-59 ml/min (CMS/[facility] V24, [facility] V28) 04/02/2021 DX:CKD (chronic kidney disea se) stage 3, GFR 30-59 ml/min ([facility]) Type 2 diabetes mellitus wit h renal manifestations ([facility] V24, [facility] V28) 03/10/2021 DX:Type 2 diabetes mellitus with renal manifestations (HCC) Osteoporosis 04/02/2021 DX:Osteoporosis History of abnormal cervical Pap smear 04/02/2021 DX:History of abnormal cervical Pap smear; COMMENT: 07/29/2016 atypical squamous cells-cannot exclude HGSIL. Family History Medical History Relation Name Comments Diabetes Brother 1 Coronary artery disease Father Emph ysema Coronary artery disease Mother Diab etes Diabetes Sister Breast cancer Neg Hx Relation Name Status Comments Brother 1 Alive Brother 2 Alive Father Mother Sister Alive Social History Tobacco Use Types Packs/Day Years Used Date Smoking Tobacco: Former Smokeless Tobacco: Never Alcohol Use Standard Drinks/Week Comments Yes 0 (1 standard drink = 0.6 oz pur e alcohol) Comments No Sex and Gender Information Value Date Recorded Sex Assigned at Not on file Legal Sex Female 1:55 PM EST Gender Identity Not on file Sexual Orientation Not on file Obstetrics History Last Filed Vital Signs Vital Sign Reading Time Taken Comments Blood Pressure 135/70 11/28/2024 10:20 AM EST Pulse 78 11/28/2024 9:53 AM EST Temperature 36.2 C (97.2 F) 11/28/2024 9:53 AM EST Respiratory Rate 16 11/28/2024 9:53 AM EST Oxygen Saturation - - Inhaled Oxygen Concentration - - Weight 71.8 kg (158 lb 3.2 oz) 11/28/2024 9:53 A M EST Height 149.9 cm (4' 11 ) 10/12/2024 11:21 AM EST Body Mass Index 31.95 10/12/2024 11:21 AM EST Plan of Treatment Upcoming Encounters Date Type Department Care Team (Late st Contact Info) Description 05/23/2025 10:30 AM EDT Consult Adult Medicine [facility] [address] [place] [phone] Malka Sheehan MD [address] [place] [id number] 05/29/2025 11:30 AM EDT Hospital Encounter [facility] [place] [address] [place] [phone] Brennon Jackson MD [address] [address] 05/29/2025 11:30 AM EDT - 05/29/2025 3:00 PM EDT Surgery [facility] [place] [address] [place] [phone] Brennon Jackson MD [address] [address] RIGHT PAROTIDECTOMY [74894 (CPT )] Scheduled Procedures Name Priority Associated Diagnoses Date/Ti me PAROTIDECTOMY Neoplasm of unspecified behavior of digestive system 05/29/2025 11:30 AM EDT Health Maintenance Due Date Last Done Comments Zoster Vaccines (1 of 2) 02/22/1969 RSV Immunization Adult Patients (1 - Risk 60-74 years 1-dose series) 2012 Pneumococcal Vaccine: 50+ Years (2 of 2 - PCV) 05/12/2017 05/12/2016, 05/20/2009 Colorectal Cancer Screening: FIT-DNA (Cologuard) 09/04/2022 Social Influencers of Health Screening 09/04/2022 Cervical Cancer Screening: Pap Smear 07/20/2024 07/20/2023, 07/20/2023 Diabetes: Annual Retina Eye Exam 07/29/2024 07/29/2023 Diabetes: Annual Urine Albumin-Creatinine Ratio (uACR) 08/25/2024 08/25/2023 Depression Screening 09/26/2024 11/11/2023 Falls Risk Assessment 11/11/2024 11/11/2023 Medicare Annual Wellness Visit 11/11/2024 11/11/2023 Diabetes: Annual Foot Exam 03/13/2025 03/13/2024 Influenza Vaccine (#1) 2025 , 06/01/2023, 07/27/2022, Additional history exists Diabetes: Blood Sugar Control Test (HGBA1C) 05/31/2025 11/28/2024, 10/12/2024, 08/03/2024, Additional history exists Diabetes: Annual GFR (Glomerular Filtration Rate) 11/28/2025 11/28/2024, 10/12/2024, 08/03/2024, Additional history exists Hypertension/CHF/CAD Annual BMP Blood Test 11/28/2025 11/28/2024, 10/12/2024, 08/03/2024, Additional history exists Breast Cancer Screening 01/03/2026 01/04/20 24, 12/29/2022, 01/19/2022, Additional history exists Cholesterol Screening (Lipid Panel) 02/28/2029 02/29/2024, 02/29/2024 DTaP,Tdap,and Td Vaccines (3 - Td or Tdap) 05/22/2031 05/22/2021, 02/25/2011 Osteoporosis Screening (Bone Density Screening) 07/04/2034 07/04/2024, 07/04/2024 Hepatitis B Vaccines Completed 11/12/2008, 06/18/2008, 05/15/2008 COVID-19 Vaccine Discontinued 02/11/2021, 01/14/2021 Hepatitis C Screening Completed 06/23/2021 HIB Vaccines Aged Out No longer eligi ble based on patient's age to complete this topic HPV Vaccines Aged Out No longer eligi ble based on patient's age to complete this topic Hepatitis A Vaccines Aged Out No long er eligible based on patient's age to complete this topic IPV Vaccines Aged Out No longer eligi ble based on patient's age to complete this topic MMR Vaccines Aged Out No longer eligi ble based on patient's age to complete this topic Meningococcal ACWY Vaccine Aged Out N o longer eligible based on patient's age to complete this topic Meningococcal B Vaccine Aged Out No l onger eligible based on patient's age to complete this topic RSV Immunization Patients Under 20 months Aged Out No longer eligible based on patient's age to complete this topic Varicella Vaccines Aged Out No longer eligible based on patient's age to complete this topic Procedures Procedure Name Priority Date/Time Associated Diagnosis Comments BASIC METABOLIC PANEL Routine 11/28/2024 11:01 AM EST Decreased GFR HEMOGLOBIN A1C Routine 11/28/2024 11:01 AM EST Preop cardiovascular exam Type 2 diabetes mellitus with diabetic microalbuminuria, with long-term current use of insulin ([facility] V24, [facility] V28) DXA BONE DENSITY STUDY 1+ SITS AXIAL SKEL Routine 07/04/2024 11:42 AM EDT Asymptomatic menopausal state DIABETES FOOT EXAM Routine 03/13/2024 LIPID PANEL Routine 02/29/2024 SCREENING MAMMOGRAPHY BI 2-VIEW BREAST INC CAD Routine 01/04/2024 3:55 PM EDT Encounter for screening mammogram for malignant neoplasm of breast DEPRESSION SCREENING Routine 11/11/2023 FALLS RISK ASSESSMENT Routine 11/11/2023 URINE ALBUMIN CREATININE RATIO Routine 08/25/2023 DIABETES EYE EXAM Routine 07/29/2023 HPV Routine 07/20/2023 HEPATITIS C SCREENING Routine 06/23/2021 from Last 3 Months or Most Recently Relevant to Health Maintenance Results * (ABNORMAL) Hemoglobin A1c (11/28/2024 11:01 AM EST) Hemoglobin A1C 9.9(H) <6.5 % LAB CHEMISTRY METHOD 11/28/2024 2:12 PM [facility] Mean Bld Glu Estim. 237 mg/dL LAB CHEMISTRY METHOD 11/28/2024 2:12 PM [facility] Blood Venous blood specimen / Unknown Venipuncture / Unknown 11/28/2024 11:01 AM EST 11/28/2024 11:01 AM EST us Malka Sheehan MD LAB BLOOD ORDERABL ES Final Result [facility] [address] [place] [address], * (ABNORMAL) Basic metabolic panel (11/28/2024 11:01 AM EST) Pathologist [facility] Sodium 141 133 - 145 mmol/L LAB CHEMISTRY METHOD 11/28/2024 3:58 PM [facility] Potassium 4.3 3.5 - 5.5 mmol/L LAB CHEMISTRY METHOD 11/28/2024 3:58 PM [facility] Chloride 107 96 - 110 mmol/L LAB CHEMISTRY METHOD 11/28/2024 3:58 PM [facility] CO2 23 21 - 32 mmol/L LAB CHEMISTRY METHOD 11/28/2024 3:58 PM [facility] Anion Gap 11 3 - 11 LAB CHEMISTRY METHOD 11/28/2024 3:58 PM [facility] Glucose 161(H) 70 - 100 mg/dL LAB CHEMISTRY METHOD 11/28/2024 3:58 PM [facility] BUN 13 5 - 25 mg/dL LAB CHEMISTRY METHOD 11/28/2024 3:58 PM [facility] Creatinine 1.03 0.50 - 1.10 mg/dL LAB CHEMISTRY METHOD 11/28/2024 3:58 PM EST [facility] eGFR 58(L) >=60 mL/min/1. 73m2 LAB CHEMISTRY METHOD 11/28/2024 3:58 PM EST [facility] Comment:Calculation based on the Chronic Kidney Disease Epidemiology Collaboration (CKD-EPI) equation refit without adjustment for race. BUN/Creatinine Ratio 12.6 LAB CHEMISTRY METHOD 11/28/2024 3:58 PM EST [facility] Calcium 9.6 8.5 - 10.5 mg/dL LAB CHEMISTRY METHOD 11/28/2024 3:58 PM [facility] Blood Venous blood specimen / Unknown Venipuncture / Unknown 11/28/2024 11:01 AM EST 11/28/2024 11:01 AM EST us Linsey BOWMAN LAB BLOOD ORDERABLES Final Resul t [facility] [address] [place] [address], * DXA BONE DENSITY STUDY 1+ SITS AXIAL SKEL (07/04/2024 11:42 AM EDT) Anatomical Region Laterality Modality Bone Densitometr y 07/04/2024 11:1 3 AM EDT Narrative 07/04/2024 5:09 PM EDT BONE DENSITY SCAN (DEXA): FINDINGS: Lumbar Spine T-score is -1.4. (SD relative to 20-29 y/o adult) Z-score is 0.9. (SD relative to age matched peers) This is considered osteopenia by WHO criteria. Left Hip T-score is -3.5. Z-score is -1.6. This is considered osteoporosis by WHO criteria. Comparison exam(s): None. IMPRESSION: IMPRESSION: Osteoporosis by WHO criteria. [facility] Department of Internal Medicine recommends using National Osteoporosis Foundation (NOF) guidelines in treatment decisions related to osteoporosis. NOF guidelines suggest considering treatment for postmenopausal women and men aged 50 or older presenting with the following: History of hip or vertebral fracture. T-score = -2.5 (DXA) at the femoral neck, total hip, or spine, after appropriate evaluation to exclude secondary causes. Low bone mass (T-score between -1.0 and -2.5 at the femoral neck or spine) AND a 10-year probability of a hip fracture = 3% OR a 10-year probability of a major osteoporosis-related fracture = 20% based on the [place]-adapted WHO algorithm Please note that all treatment decisions require clinical judgment and consideration of individual patient factors, including patient preferences, co-morbidities, previous drug use, risk factors not captured in the FRAX model (e.g., frailty, falls, vitamin D deficiency, increased bone turnover, interval significant decline in bone density) and possible under- or over-estimation of fracture risk by FRAX. Optional alternative screening schedule based on yuliya Akers., [facility] October 14, 2011 for patients with osteopenia (based on hip BMD T-score) is as follows: * advanced osteopenia (T scores -2.00 to -2.49), BMD testing every year * moderate osteopenia (T scores -1.50 to -1.99), BMD testing every 5 years mild osteopenia or normal BMD (T scores -1.50 and higher), BMD testing every 15 years Procedure Note Angelica Richardson MD - 07/24/2024 BONE DENSITY SCAN (DEXA): FINDINGS: Lumbar Spine T-score is -1.4. (SD relative to 20-29 y/o adult) Z-score is 0.9. (SD relative to age matched peers) This is considered osteopenia by WHO criteria. Left Hip T-score is -3.5. Z-score is -1.6. This is considered osteoporosis by WHO criteria. Comparison exam(s): None. IMPRESSION: IMPRESSION: Osteoporosis by WHO criteria. [facility] Department of Internal Medicine recommendsusing National Osteoporosis Foundation (NOF) guidelines in treatment decisions related toosteoporosis. NOF guidelines suggest considering treatment for postmenopausal women and menaged 50 or older presenting with the following: History of hip or vertebral fracture. T-score = -2.5 (DXA) at the femoral neck, total hip, or spine, afterappropriate evaluation to exclude secondary causes. Low bone mass (T-score between -1.0 and -2.5 at the femoral neck or spine)AND a 10-year probability of a hip fracture = 3% OR a 10-year probability of a majorosteoporosis-related fracture = 20% based on the [place]-adapted WHO algorithm Please note that all treatment decisions require clinical judgment andconsideration of individual patient factors, including patient preferences, co- morbidities,previous drug use, risk factors not captured in the FRAX model (e.g., frailty, falls, vitaminD deficiency, increased bone turnover, interval significant decline in bone density) andpossible under- or over-estimation of fracture risk by FRAX. Optional alternative screening schedule based on [facility]uli[facility] Akers., [facility] for patients with osteopenia (based on hip BMD T-score) is as follows: * advanced osteopenia (T scores -2.00 to -2.49), BMD testing every year * moderate osteopenia (T scores -1.50 to -1.99), BMD testing every 5years mild osteopenia or normal BMD (T scores -1.50 and higher), BMD testingevery 15 years Rita BOWMAN IMG DXA PROCEDURES Final Result * Diabetes Foot Exam (03/13/2024) [facility] Diabetes: Annual Foot Exam Abstracted Historical Provider HEALTH MAINTENANCE Final Result * Lipid panel (02/29/2024) [facility] LDL/HDL Ratio 4 0 - 4 Triglycerides 129 0 - 150 mg/dL Cholesterol 166 0 - 200 mg/dL HDL 47 >=40 mg/dL LDL Cholesterol 94 0 - 100 mg/dL Blood Venous blood specimen / Unknown Result [facility] Historical Provider LAB BLOOD ORDERABLES Belle l Result * SCREENING MAMMOGRAPHY BI 2-VIEW BREAST INC CAD (01/04/2024 3:55 PM EDT) Anatomical Region Laterality Modality Radiographic Haydee ging 12/29/2022 3:55 PM EDT Narrative 01/04/2024 4:14 PM EDT This is a summary report. The complete report is available in the patient's medical record. If you cannot access the medical record, please contact the sending organization for a detailed fax or copy. Full field digital screening tomosynthesis mammography, reviewed with CAD and compared to previous. The breasts are composed of fatty and fibroglandular tissue. No suspicious mass, architectural distortion or suspicious calcifications are identified. IMPRESSION: : No mammographic evidence of malignancy. BIRADS 1-Negative; N. 5 year breast cancer risk assessment 1.1 % Lifetime breast cancer risk assessment 3.2 % Breast cancer risk category Low (<15%) Procedure Note Aguila Young MD - 05/14/2024 This is a summary report. The complete report is available in thepatient's medical record. If you cannot access the medical record, pleasecontact the sending organization for a detailed fax or copy. Full field digital screening tomosynthesis mammography, reviewed with CADand compared to previous. The breasts are composed of fatty andfibroglandular tissue. No suspicious mass, architectural distortion orsuspicious calcifications are identified. IMPRESSION: : No mammographic evidence of malignancy. BIRADS 1-Negative; N. 5 year breast cancer risk assessment 1.1 % Lifetime breast cancer risk assessment 3.2 % Breast cancer risk category Low (<15%) Result [facility] Malka Sheehan MD IMG XR PROCEDURES Final Result * Falls Risk Assessment (11/11/2023) [facility] Falls Risk Assessment Abstracted Result [facility] Provider HEALTH MAINTENANCE Final Result * Depression Screening (11/11/2023) [facility] Depression Screening Abstracted Result [facility] Provider HEALTH MAINTENANCE Final Result * Urine Albumin Creatinine Ratio (08/25/2023) [facility] Urine Albumin Creatinine Ratio Abstracted Result [facility] Provider HEALTH MAINTENANCE Final Result * Diabetes Eye Exam (07/29/2023) [facility] Diabetes: Annual Retina Eye Exam Abstracted Historical Provider HEALTH MAINTENANCE Final Result * Cervical Cancer Screening: HPV (07/20/2023) [facility] Cervical Cancer Screening: HPV Negative, abstracted [facility] Provider HEALTH MAINTENANCE Final Result * Hepatitis C Screening (06/23/2021) [facility] Hepatitis C Screening Abstracted [facility] Provider HEALTH MAINTENANCE Final Result from Last 3 Months or Most Recently Relevant to Health Maintenance Insurance MEDICARE MEDICAID - [place] Care Teams Director Quality Systems Relationship Specialty Start Date End Date Malka Sheehan MD [address] [place] [phone] PCP - General Internal Medicine 05/03/22
--- OUTSIDE RECORDS SUMMARY | 2025-05-22 08:53 | XMS_ITS ---
Author Name [facility] Organization Unknown Care Team Organization Name Specialty Phone Email Start Date End Da te [facility] ACO 05/15/[address] [facility] Rita Okeefe Primary Care 09/07/202320[address] [facility] Malka Miller Primary Care 06/02/2023 05/14/[address] [facility] MARITO Corley Primary Care 12/01/202204/[address] [facility] Mary Beth Irving Primary Care 08/03/2022 05/14/20
== END 2025-05-22 09:27 | disposition home or self-care (01) ==
PROVIDERS: PCP Internal Medicine; Visit Provider Physician Assistant Medical
DX: K59.00 Constipation, unspecified (principal)

== ENCOUNTER → 2025-05-22 08:30 | Outpatient (BNVA) | payer MEDICARE, MEDICAID, SELFPAY | PROVIDERS: PCP Internal Medicine; Visit Provider Physician Assistant Medical | DX: K59.00 Constipation, unspecified (principal) | CPT/HCPCS: 99212 ==